=== PATIENT | male | born 1990 | race American Indian/Alaskan Native ===

== ENCOUNTER 2016-10-27 21:24 | Observation (INO) | payer OTHER ==
[2016-10-27 21:25] VITALS: BMI 43.0
--- NOTE | 2016-10-27 21:46 | C.PDOC ---
History Of Present Illness <Maria Luz Alford - Last Filed: 10/28/16 06:54> <Randolhp Mayo - Last Filed: 10/28/16 10:03> The patient, a 26y/o male, presents to the ED with complaints of suicidal ideation. Patient states he was discharged from [facility] ER for suicidal ideation. Patient has had multiple prior ER visits for the same. Patient has history of schizophrenia, alcohol intoxication, and agitation. CO SUICIDAL IDEATION. DC FROM [facility] ER FOR SUICIDAL IDEATION. MULTIPLE PRIOR ER VISITS FOR SAME, HO SCHIZOPHRENIA, ETOH INTOX AND AGITATION. (Maria Luz Alford) History Per: Patient History/Exam Limitations: intoxication Onset/Duration Of Symptoms: Hrs Current Symptoms Are (Timing): Still Present Suicide/Self Injury Attempted (Context): None Modifying Factor(s): Alcohol Associated Symptoms: Suicidal Thoughts Additional History Per: Patient <Maria Luz Alford - Last Filed: 10/28/16 06:54> <Randolph Mayo - Last Filed: 10/28/16 10:03> Time Seen by Provider: 10/27/16 21:44 Chief Complaint (Nursing): Psychiatric Evaluation Past Medical History Reviewed: Historical Data, Nursing Documentation, Vital Signs - Medical History PMH: Anxiety, Asthma, Bipolar Disorder, Depression, Fractures, HTN, Hypercholesterolemia, Migraine, Schizophrenia, Sleep Apnea Denies: Diabetes, Hepatitis, HIV, Chronic Kidney Disease, Seizures, Sexually Transmitted Disease Surgical History: No Surg Hx Family History: States: Unknown Family Hx - Social History Hx Tobacco Use: Yes Hx Alcohol Use: No Hx Substance Use: No - Immunization History Hx Tetanus Toxoid Vaccination: No Hx Influenza Vaccination: No Hx Pneumococcal Vaccination: No <Maria Luz Alford - Last Filed: 10/28/16 06:54> Vital Signs: Last Vital Signs Temp 97.2 F L 10/28/16 07:39 Pulse 67 10/28/16 07:39 Resp 18 10/28/16 07:39 BP 110/60 10/28/16 07:39 Pulse Ox 98 10/28/16 07:39 - [facility] Procedures GROUP PSYCHOTHERAPY (05/07/16) INDIVIDUAL PSYCHOTHERAPY, SUPPORTIVE (05/07/16) MEDICATION MANAGEMENT (05/07/16) Review Of Systems Constitutional: Positive for: Other (+ETOH intoxication ) <Maria Luz Alford - Last Filed: 10/28/16 06:54> Physical Exam - Physical Exam Appears: Agitated, Other (+ETOH intoxication ) Skin: Normal Color, Warm, Dry Head: Atraumatic, Normacephalic Eye(s): bilateral: Normal Inspection Oral Mucosa: Moist Neck: Supple Chest: Symmetrical, No Deformity Cardiovascular: Rhythm Regular Respiratory: Normal Breath Sounds Extremity: Normal ROM, Capillary Refill (less than 2 seconds ) Neurological/Psych: Other (active suicidal ideation, no hallucinations. calm, cooperative ) Gait: Unsteady <MariaL uz Alford - Last Filed: 10/28/16 06:54> ED Course And Treatment - Laboratory Results Result Diagrams: 10/27/16 22:34 10/27/16 22:34 O2 Sat by Pulse Oximetry: 96 (on RA) Pulse Ox Interpretation: Normal <Maria Luz Alford - Last Filed: 10/28/16 06:54> - Laboratory Results Result Diagrams: 10/27/16 22:34 10/27/16 22:34 <Randolph Mayo - Last Filed: 10/28/16 10:03> Medical Decision Making <Maria Luz Alford - Last Filed: 10/28/16 06:54> <Randolph Mayo - Last Filed: 10/28/16 10:03> Medical Decision Making: pt received as signout. will be transfered to dr octavia harman cxr no acute disease. medically cleared dx bipolar (Randolph Mayo) ED OBSERVATION Date of observation admission: 10/27/16 Time of observation admission: 21:45 <Maria Luz Alford - Last Filed: 10/28/16 06:54> <Randolph Mayo - Last Filed: 10/28/16 10:03> - Observation admission statement Patient is being placed in observation because:: SUICIDAL IDEATION (Maria Luz Alford) - Goals of Observation Goals of observation are:: MED CLEAR; CRISIS EVAL (Maria Luz Alford) - Progress Note Progress Note: 10/27/16 23:43 MED CLEAR FOR PSYCH EVAL, CRISIS NOTIFIED 10/28/16 05:49 PENDING CRISIS EVAL 10/28/16 06:55 S/O DR MAYO FU CRISIS, DISPO (Maria Luz Alford) Disposition <Maria Luz Alford - Last Filed: 10/28/16 06:54> - Disposition Disposition Time: 10:03 <Randolph Mayo - Last Filed: 10/28/16 10:03> - Disposition Disposition: Trans to Other Acute Care Hosp Condition: STABLE - Clinical Impression Clinical Impression: Bipolar I disorder - Scribe Statement The provider has reviewed the documentation as recorded by the Scribe (Marilee Echeverria) <Maria Luz Alford - Last Filed: 10/28/16 06:54> <Randolph Mayo - Last Filed: 10/28/16 10:03> - Scribe Statement Provider Attestation: All medical record entries made by the Scribe were at my direction and personally dictated by me. I have reviewed the chart and agree that the record accurately reflects my personal performance of the history, physical exam, medical decision making, and the department course for this patient. I have also personally directed, reviewed, and agree with the discharge instructions and disposition. (Maria Luz Alford)
[2016-10-27 22:36] LABS: BASO # 0.1 K/uL (0.0-0.2); BASO % 1.4 % (0.0-2.0); EOS # 0.2 K/uL (0.0-0.7); EOS % 3.6 % (0.0-4.0); HEMATOCRIT 41.4 % (35.0-51.0); LYMPH # 2.7 K/uL (1.0-4.3); LYMPH % 44.2 % (20.0-40.0); MEAN CELL VOLUME 80.8 fL (80.0-94.0); MEAN CORPUSCULAR HEMOGLOBIN 26.1 pg (27.0-31.0); MEAN CORPUSCULAR HGB CONC 32.3 g/dL (33.0-37.0); MEAN PLATELET VOLUME 10.3 fL (7.2-11.7); MONO # 0.5 K/uL (0.0-0.8); MONO % 7.7 % (0.0-10.0); RED CELL DISTRIBUTION WIDTH 14.8 % (11.5-14.5)
[2016-10-27 22:44] LABS: CHLORIDE 103 mmol/L (98-107); SODIUM 140 mmol/L (132-148)
[2016-10-27 22:45] LABS: POTASSIUM 3.5 mmol/L (3.6-5.2)
[2016-10-27 22:47] LABS: ALB/GLOB RATIO 1.1 (1.0-2.1); ALKALINE PHOSPHATASE 54 U/L (38-126); ALT/SGPT 37 U/L (21-72); AST/SGOT 29 U/L (17-59); BILIRUBIN,TOTAL 1.1 mg/dL (0.2-1.3); BLOOD UREA NITROGEN 10 mg/dL (9-20); CARBON DIOXIDE 25 mmol/L (22-30); GFR AFRICAN-AMERICAN > 60; GLUCOSE,RANDOM 80 mg/dL (75-110); TOTAL PROTEIN 7.4 g/dL (6.3-8.3)
[2016-10-27 22:48] LABS: ALCOHOL SERUM < 10 mg/dl (0-10); CALCIUM 8.9 mg/dl (8.6-10.4)
[2016-10-27 23:23] LABS: GRANULAR CAST 191 /lpf (0-1); RBC URINE 1 /hpf (0-3); URINE BACTERIA RARE (<OCC); URINE BILIRUBIN 1+ (NEGATIVE); URINE BLOOD NEGATIVE (NEGATIVE); URINE COLOR Amber (YELLOW); URINE GLUCOSE (UA) NORMAL (Normal); URINE KETONE TRACE mg/dL (NEGATIVE); URINE LEUKOCYTE ESTERASE NEG Leu/uL (Negative); URINE PROTEIN 1+ mg/dL (NEGATIVE); WBC URINE 2 /hpf (0-5)
[2016-10-28 13:19] VITALS: BP 111/73; PULSE 68; RESP 20; TEMP 98.4; O2SAT 100
--- NOTE | 2016-10-28 15:09 | RAD ---
HISTORY: psych COMPARISON: 10/11/2016 FINDINGS: LUNGS: No active pulmonary disease. PLEURA: No significant pleural effusion identified, no pneumothorax apparent. CARDIOVASCULAR: Normal. OSSEOUS STRUCTURES: No significant abnormalities. VISUALIZED UPPER ABDOMEN: Normal. OTHER FINDINGS: None. IMPRESSION: No active disease.
== END 2016-10-28 16:06 | disposition home or self-care (01) ==
LOC: C.ER 21:24 → C.9OBSV 21:45
PROVIDERS: ADMIT Emergency Medicine; ATTEND Emergency Medicine
DX: F20.9 Schizophrenia, unspecified (principal); F31.9 Bipolar disorder, unspecified; I10 Essential (primary) hypertension; E78.00 Pure hypercholesterolemia, unspecified; J45.909 Unspecified asthma, uncomplicated; R45.851 Suicidal ideations; Z87.891 Personal history of nicotine dependence; G47.30 Sleep apnea, unspecified
CPT/HCPCS: 36415; 71010; 80053; 80320; 80324; 80345; 80346; 80349; 80353; 80358; 80361; 81001; 83992; 85025; 99285; G0378 ×2

== ENCOUNTER 2016-11-09 19:03 | Emergency (ER) | payer MEDICAID, OTHER ==
[2016-11-09 19:03] VITALS: BMI 43.0
--- NOTE | 2016-11-09 20:19 | C.PDOC ---
History Of Present Illness 26 year old male presents to the ED with complaints of suicidal thoughts and delusions. Patient states he has no plan and denies homicidal ideation or any physical complaints at this time. Time Seen by Provider: 11/09/16 20:19 Chief Complaint (Nursing): Psychiatric Evaluation History Per: Patient History/Exam Limitations: no limitations Onset/Duration Of Symptoms: Days Current Symptoms Are (Timing): Still Present Severity: Mild Associated Symptoms: Suicidal Thoughts. denies: Suicidal Plan Past Medical History Reviewed: Historical Data, Nursing Documentation, Vital Signs Vital Signs: Last Vital Signs Temp 98.8 F 11/09/16 19:19 Pulse 90 11/09/16 19:19 Resp 20 11/09/16 19:19 BP 121/69 11/09/16 19:19 Pulse Ox 96 11/09/16 21:45 - Medical History PMH: Anxiety, Asthma, Bipolar Disorder, Depression, Fractures (hx. right wrist) , HTN, Hypercholesterolemia, Migraine, Schizophrenia, Sleep Apnea - [facility] Procedures EXTRACTION OF LEFT FOOT SKIN, EXTERNAL APPROACH (10/28/16) EXTRACTION OF RIGHT FOOT SKIN, EXTERNAL APPROACH (10/28/16) GROUP PSYCHOTHERAPY (10/28/16) INDIVIDUAL PSYCHOTHERAPY, BEHAVIORAL (10/28/16) INDIVIDUAL PSYCHOTHERAPY, SUPPORTIVE (05/07/16) MEDICATION MANAGEMENT (05/07/16) Family History: States: Unknown Family Hx - Social History Hx Tobacco Use: Yes Hx Alcohol Use: Yes (as per pt. etoh level, neg) Hx Substance Use: No (PT DENIES) - Immunization History Hx Tetanus Toxoid Vaccination: No Hx Influenza Vaccination: No Hx Pneumococcal Vaccination: No Review Of Systems Constitutional: Negative for: Fever, Chills Cardiovascular: Negative for: Chest Pain, Palpitations Respiratory: Negative for: Cough, Shortness of Breath Gastrointestinal: Negative for: Nausea, Vomiting, Abdominal Pain Musculoskeletal: Negative for: Neck Pain, Back Pain Neurological: Negative for: Weakness, Numbness Psych: Positive for: Suicidal ideation Physical Exam - Physical Exam Appears: Non-toxic, No Acute Distress Skin: No Warm, No Dry Head: Atraumatic, Normacephalic Eye(s): bilateral: Normal Inspection Oral Mucosa: Moist Neck: Supple Chest: Symmetrical, No Deformity Cardiovascular: Rhythm Regular Respiratory: No Accessory Muscle Use, No Rales, No Rhonchi, No Wheezing Extremity: Normal ROM Neurological/Psych: Oriented x3, Normal Speech, Normal Cognition ED Course And Treatment - Laboratory Results Result Diagrams: 11/09/16 20:55 11/09/16 20:55 O2 Sat by Pulse Oximetry: 96 (Room air) Pulse Ox Interpretation: Normal Progress Note: Blood work and Urinalysis ordered and reviewed. Case discussed with the crisis overnight caregiver who agreed to evaluate the patient. Patient cleared for discharge by dr Carl Reevaluation Time: 21:44 Reassessment Condition: Improved Disposition Counseled Patient/Family Regarding: Studies Performed, Diagnosis, Need For Followup - Disposition Referrals: Jonathan Howard Jr., MD [Medical Doctor] - Disposition: HOME/ ROUTINE Disposition Time: 20:19 Condition: FAIR Instructions: Depression (DC), Schizoaffective Disorder (ED) - Clinical Impression Clinical Impression: Schizoaffective disorder - Scribe Statement The provider has reviewed the documentation as recorded by the Scribe Kymberly Odonnell. Provider Attestation: All medical record entries made by the Scribe were at my direction and personally dictated by me. I have reviewed the chart and agree that the record accurately reflects my personal performance of the history, physical exam, medical decision making, and the department course for this patient. I have also personally directed, reviewed, and agree with the discharge instructions and disposition.
[2016-11-09 20:40] LABS: URINE BILIRUBIN NEGATIVE (NEGATIVE); URINE BLOOD NEGATIVE (NEGATIVE); URINE COLOR Straw (YELLOW); URINE GLUCOSE (UA) NORMAL (Normal); URINE KETONE NEGATIVE (NEGATIVE); URINE LEUKOCYTE ESTERASE NEG Leu/uL (Negative); URINE PROTEIN NEGATIVE (NEGATIVE); URINE UROBILINOGEN NORMAL mg/dL (0.2-1.0)
[2016-11-09 21:00] LABS: BASO # 0.1 K/uL (0.0-0.2); BASO % 0.7 % (0.0-2.0); EOS # 0.2 K/uL (0.0-0.7); EOS % 2.2 % (0.0-4.0); HEMATOCRIT 38.4 % (35.0-51.0); LYMPH # 2.8 K/uL (1.0-4.3); LYMPH % 36.1 % (20.0-40.0); MEAN CELL VOLUME 81.1 fL (80.0-94.0); MEAN CORPUSCULAR HEMOGLOBIN 26.5 pg (27.0-31.0); MEAN CORPUSCULAR HGB CONC 32.6 g/dL (33.0-37.0); MEAN PLATELET VOLUME 10.6 fL (7.2-11.7); MONO # 0.7 K/uL (0.0-0.8); MONO % 8.7 % (0.0-10.0); NRBC % 0.1 % (0.0-2.0); RED CELL DISTRIBUTION WIDTH 15.6 % (11.5-14.5); WHITE BLOOD COUNT 7.6 K/uL (4.8-10.8)
[2016-11-09 21:10] LABS: CHLORIDE 101 mmol/L (98-107); POTASSIUM 3.9 mmol/L (3.6-5.2); SODIUM 140 mmol/L (132-148)
[2016-11-09 21:12] LABS: GFR AFRICAN-AMERICAN > 60
[2016-11-09 21:13] LABS: ALB/GLOB RATIO 1.5 (1.0-2.1); ALKALINE PHOSPHATASE 49 U/L (38-126); ALT/SGPT 22 U/L (21-72); AST/SGOT 17 U/L (17-59); BILIRUBIN,TOTAL 0.2 mg/dL (0.2-1.3); BLOOD UREA NITROGEN 8 mg/dL (9-20); CALCIUM 8.2 mg/dl (8.6-10.4); CARBON DIOXIDE 22 mmol/L (22-30); GLUCOSE,RANDOM 94 mg/dL (75-110); TOTAL PROTEIN 6.3 g/dL (6.3-8.3)
[2016-11-09 21:14] LABS: ALCOHOL SERUM 81 mg/dl (0-10)
[2016-11-09 21:53] VITALS: BP 120/69; PULSE 87; RESP 18; TEMP 98.6; O2SAT 98
== END 2016-11-09 21:45 | disposition home or self-care (01) ==
LOC: C.ER 19:03
DX: F25.1 Schizoaffective disorder, depressive type (principal)

== ENCOUNTER 2017-03-18 22:00 | Observation (INO) | payer MEDICAID, OTHER ==
[2017-03-19 01:42] LABS: BASO # 0.1 K/uL (0.0-0.2); BASO % 0.9 % (0.0-2.0); EOS # 0.2 K/uL (0.0-0.7); HEMATOCRIT 42.3 % (35.0-51.0); LYMPH # 3.1 K/uL (1.0-4.3); LYMPH % 43.6 % (20.0-40.0); MEAN CELL VOLUME 81.8 fL (80.0-94.0); MEAN CORPUSCULAR HEMOGLOBIN 26.9 pg (27.0-31.0); MEAN CORPUSCULAR HGB CONC 32.9 g/dL (33.0-37.0); MEAN PLATELET VOLUME 9.7 fL (7.2-11.7); MONO # 0.5 K/uL (0.0-0.8); MONO % 7.3 % (0.0-10.0); NRBC % 0.1 % (0.0-2.0); RED CELL DISTRIBUTION WIDTH 14.1 % (11.5-14.5); WHITE BLOOD COUNT 7.1 K/uL (4.8-10.8)
[2017-03-19 01:49] LABS: RBC URINE < 1 /hpf (0-3); URINE BILIRUBIN NEGATIVE (NEGATIVE); URINE BLOOD NEGATIVE (NEGATIVE); URINE COLOR Amber (YELLOW); URINE GLUCOSE (UA) NORMAL (Normal); URINE KETONE TRACE mg/dL (NEGATIVE); URINE LEUKOCYTE ESTERASE NEG Leu/uL (Negative); URINE PROTEIN 1+ mg/dL (NEGATIVE); WBC URINE 1 /hpf (0-5)
[2017-03-19 01:57] LABS: CHLORIDE 105 mmol/L (98-107)
[2017-03-19 01:58] LABS: POTASSIUM 3.5 mmol/L (3.6-5.2); SODIUM 141 mmol/L (132-148)
[2017-03-19 02:00] LABS: ALB/GLOB RATIO 1.3 (1.0-2.1); ALKALINE PHOSPHATASE 57 U/L (38-126); AST/SGOT 54 U/L (17-59); BILIRUBIN,TOTAL 0.9 mg/dL (0.2-1.3); BLOOD UREA NITROGEN 10 mg/dL (9-20); CARBON DIOXIDE 22 mmol/L (22-30); GFR AFRICAN-AMERICAN > 60
[2017-03-19 02:01] LABS: ALCOHOL SERUM < 10 mg/dl (0-10); ALT/SGPT 49 U/L (21-72); CALCIUM 9.3 mg/dl (8.6-10.4); GLUCOSE,RANDOM 82 mg/dL (75-110)
--- NOTE | 2017-03-19 02:25 | C.PDOC ---
History Of Present Illness <Rick Wylie - Last Filed: 03/19/17 02:29> <Antolin Greenwood - Last Filed: 03/19/17 08:27> 26 year old male who presents to the ER with a complaint of swelling to the hands. Patient is well known to the ER and has a Hx of becoming agitated. Patient is verbally abusing staff and is not allowing the nurses to do vital signs. Denies other complaints at this time. (WylieRick R) History Per: Patient History/Exam Limitations: no limitations Onset/Duration Of Symptoms: Hrs Current Symptoms Are (Timing): Still Present Recent travel outside of the [place]: No <Rick Wylie - Last Filed: 03/19/17 02:29> <Antolin Greenwood - Last Filed: 03/19/17 08:27> Chief Complaint (Nursing): Psychiatric Evaluation Past Medical History Reviewed: Historical Data, Nursing Documentation, Vital Signs - Medical History PMH: Anxiety, Asthma, Bipolar Disorder, Depression, Diabetes (per pt), Fractures (hx. right wrist), HTN, Hypercholesterolemia, Migraine, Schizophrenia , Sleep Apnea Surgical History: No Surg Hx Family History: States: Unknown Family Hx - Social History Hx Tobacco Use: Yes Hx Alcohol Use: No Hx Substance Use: Yes (hx of drug overdose) - Immunization History Hx Tetanus Toxoid Vaccination: No Hx Influenza Vaccination: No Hx Pneumococcal Vaccination: No <Rick Wylie - Last Filed: 03/19/17 02:29> <ImmAntolin - Last Filed: 03/19/17 08:27> Vital Signs: Last Vital Signs Temp 98.3 F 03/19/17 03:34 Pulse 61 03/19/17 06:23 Resp 16 03/19/17 06:23 BP 119/83 03/19/17 06:23 Pulse Ox 99 03/19/17 06:23 - [facility] Procedures EXTRACTION OF LEFT FOOT SKIN, EXTERNAL APPROACH (11/11/16) EXTRACTION OF RIGHT FOOT SKIN, EXTERNAL APPROACH (11/11/16) GROUP PSYCHOTHERAPY (11/11/16) INDIVIDUAL PSYCHOTHERAPY, BEHAVIORAL (11/11/16) INDIVIDUAL PSYCHOTHERAPY, SUPPORTIVE (05/07/16) MEDICATION MANAGEMENT (05/07/16) Review Of Systems Constitutional: Negative for: Fever, Chills Gastrointestinal: Negative for: Nausea, Vomiting, Diarrhea Skin: Positive for: Other (Swelling) <Rick Wylie - Last Filed: 03/19/17 02:29> Physical Exam - Physical Exam Appears: Non-toxic, No Acute Distress Skin: Normal Color, Warm, Dry Head: Atraumatic, Normacephalic Oral Mucosa: Moist Chest: Symmetrical, No Tenderness Cardiovascular: Rhythm Regular, No Murmur Respiratory: Normal Breath Sounds, No Rales, No Rhonchi, No Wheezing Gastrointestinal/Abdominal: Soft, No Tenderness Neurological/Psych: Oriented x3, Normal Speech, Normal Cognition <Rick Wylie R - Last Filed: 03/19/17 02:29> ED Course And Treatment - Laboratory Results Result Diagrams: 03/19/17 01:32 03/19/17 01:32 O2 Sat by Pulse Oximetry: 97 (Room air) Pulse Ox Interpretation: Normal Progress Note: UDS ordered. Ativan and haldol administered. Catheter placed. Patient place on 4 points for his own safety and safety of staff. <Rick Wylie - Last Filed: 03/19/17 02:29> - Laboratory Results Result Diagrams: 03/19/17 01:32 03/19/17 01:32 <Antolin Greenwood - Last Filed: 03/19/17 08:27> Medical Decision Making <Rick Wylie - Last Filed: 03/19/17 02:29> <Antolin Greenwood - Last Filed: 03/19/17 08:27> Medical Decision Making: Signed out to me by Dr. Wylie at change of shift pending evaluation by Psych. Patient evaluated at bedside by Dr. Zelaya who recommends discharge at this time and referral to [facility]. (Antolin Greenwood) Disposition <Rick Wylie - Last Filed: 03/19/17 02:29> Discussed With : Scot Zelaya Doctor Will See Patient In The: ED - Disposition Disposition Time: 08:25 <Antolin Greenwood - Last Filed: 03/19/17 08:27> - Disposition Disposition: HOME/ ROUTINE Condition: STABLE - Clinical Impression Clinical Impression: Psychiatric symptoms - Scribe Statement The provider has reviewed the documentation as recorded by the Scribe <Rick Wylie - Last Filed: 03/19/17 02:29> <Antolin Greenwood - Last Filed: 03/19/17 08:27> - Scribe Statement Anthony Lehman All medical record entries made by the Scribe were at my direction and personally dictated by me. I have reviewed the chart and agree that the record accurately reflects my personal performance of the history, physical exam, medical decision making, and the department course for this patient. I have also personally directed, reviewed, and agree with the discharge instructions and disposition. (Rick Wylie)
[2017-03-19 03:34] VITALS: TEMP 98.3
[2017-03-19 06:24] VITALS: BP 119/83; PULSE 61; RESP 16; O2SAT 99
--- NOTE | 2017-03-19 07:55 | RAD ---
HISTORY: for [facility] [place] COMPARISON: 10/28/2016 FINDINGS: LUNGS: No active pulmonary disease. Shallow lung volumes noted -some crowding of the infrahilar bronchovascular markings noted PLEURA: Sign CARDIOVASCULAR: Normal. OSSEOUS STRUCTURES: No significant abnormalities. VISUALIZED UPPER ABDOMEN: Normal. OTHER FINDINGS: None. IMPRESSION: No active disease. No suspect interval pathology
--- NOTE | 2017-03-19 08:53 | PCM.PSYCH ---
Initial Psychiatric Evaluation - Initial Psychiatric Evaluation Type of Admission: Voluntary Legal Status: Capacity Chief Complaint (in patient's own words): "I was bloated, that's why I came" History of Present Illness and Precipitating Events: The pt is seen, chart reviewed and case discussed with several staff. He is also well-known to us from previous visits and admissions, same in [facility]. 26 yo AAM, single, homeless and unemployed He says he came in for medical reasons but then asked for psych admission. He speaks about vague SI, but has no intention/plan. He reports some depressive sxs, irritability. However, he is seen at his baseline like before. Using MJ and amphetamines Past psych hx: several admissions Medical: as per chart, cleared medically Past Psychiatric History - Past Psychiatric History Previous Treatment History: Inpatient Pertinent Medical Hx (Current Medical&Sleep Prob, Allergies): Allergies Allergy/AdvReac Type Severity Reaction Status Date / Time pollen extracts Allergy REDNESS Verified 12/26/16 11:47 Benztropine [Cogentin] 1 mg PO BID #28 tab 11/22/16 Divalproex [Depakote DR(*BID*)] 1,000 mg PO HS #28 tcp 11/22/16 Divalproex [Depakote] 750 mg PO DAILY #42 tcp 11/22/16 Haloperidol [Haldol] 10 mg PO BID #28 tab 11/22/16 Sertraline [Zoloft] 50 mg PO DAILY #14 tab 11/22/16 traZODone [Desyrel] 50 mg PO HS #14 tab 11/22/16 Review of Systems - Psychiatric Psychiatric: Abnormal Sleep Pattern, Difficulty Concentrating, Hallucinations. absent: Homicidal Ideation, Suicidal Ideation Mental Status Examination - Personal Presentation Personal Presentation: Looks older than stated age - Affect Affect: Constricted - Motor Activity Motor Activity: Calm (now) - Reliability in Providing Information Reliability in Providing Information: Fair - Speech Speech: Organized - Mood Mood: Anxious - Formal Thought Process Formal Thought Process: Hallucinations - Cognitive Functions Orientation: Person, Place, Situation, Time Sensorium: Drowsy Attention/Concentration: Easily distracted Estimate of Intelligence: Below average Judgement: Imparied, as evidence by: Poor judgement Memory: Recent impaired, as evidence by: Inability to recall events of the day, Remote impaired as evidenced by: Inability to recall sig life events - Risk Risk: Diminished functioning - Limitations Limitations: Living alone DSM 5 DX - DSM 5 DSM 5 Diagnosis: Schizoaffective d/o - bipolar type r/o Antisocial personality d/o - Recommended/Plan of Treatment Treatment Recommendations and Plan of Treatment: Pt can follow with [facility] as arranged previously [facility] if needed Cleared for d/c 31 min
--- NOTE | 2017-03-19 18:27 | CARD ---
APPROVED REPORT EKG Measurement Heart [id number] <Conclusion> Sinus bradycardia with sinus arrhythmia Otherwise normal ECG
== END 2017-03-19 09:47 | disposition home or self-care (01) ==
LOC: C.ER 22:00 → C.9OBSV 03-19 06:57
PROVIDERS: ADMIT Emergency Medicine; ATTEND Emergency Medicine
DX: F25.0 Schizoaffective disorder, bipolar type (principal); F15.10 Other stimulant abuse, uncomplicated; F12.10 Cannabis abuse, uncomplicated; F17.210 Nicotine dependence, cigarettes, uncomplicated; J45.909 Unspecified asthma, uncomplicated; I10 Essential (primary) hypertension; G47.30 Sleep apnea, unspecified; E78.00 Pure hypercholesterolemia, unspecified; E11.9 Type 2 diabetes mellitus without complications
CPT/HCPCS: 71010; 80053; 80320; 80324; 80345; 80346; 80349; 80353; 80358; 80361; 81001; 83992; 85025; 93005; 96372; 99285; G0378; J1630; J2060

== ENCOUNTER 2017-03-26 16:52 | Inpatient (IN) | payer MEDICAID, OTHER ==
[2017-03-26 16:58] VITALS: BMI 35.9
[2017-03-26 17:24] LABS: BASO # 0.1 K/uL (0.0-0.2); BASO % 1.3 % (0.0-2.0); EOS # 0.2 K/uL (0.0-0.7); EOS % 3.1 % (0.0-4.0); HEMATOCRIT 40.8 % (35.0-51.0); LYMPH # 2.5 K/uL (1.0-4.3); MEAN CELL VOLUME 81.1 fL (80.0-94.0); MEAN CORPUSCULAR HGB CONC 33.3 g/dL (33.0-37.0); MONO # 0.4 K/uL (0.0-0.8); MONO % 6.8 % (0.0-10.0); NRBC % 0.1 % (0.0-2.0); RED CELL DISTRIBUTION WIDTH 13.8 % (11.5-14.5); WHITE BLOOD COUNT 6.3 K/uL (4.8-10.8)
--- NOTE | 2017-03-26 17:35 | C.PDOC ---
History Of Present Illness 26 yr old male presents to the ER accompanied by PD, stating he has suicidal ideation, homicidal ideation, visual and auditory hallucinations. Patient states the auditory hallucination saw various words. Patient states he does not have a plan. Patient states the last time he took his psych medication was last week. Patient reports on the request of his psychiatrists he stopped taking his medications, secondary to the heat. Patient denies chest pain, SOB, weakness or numbness. Time Seen by Provider: 03/26/17 17:02 Chief Complaint (Nursing): Psychiatric Evaluation History Per: Patient History/Exam Limitations: no limitations Onset/Duration Of Symptoms: Days Suicide/Self Injury Attempted (Context): None Past Medical History Reviewed: Historical Data, Nursing Documentation, Vital Signs Vital Signs: Last Vital Signs Temp 98.5 F 03/26/17 16:55 Pulse 75 03/26/17 16:55 Resp 18 03/26/17 16:55 BP 176/75 H 03/26/17 16:55 Pulse Ox 97 03/26/17 17:38 - Medical History PMH: Anxiety, Asthma, Bipolar Disorder, Depression, Diabetes (per pt), Fractures (hx. right wrist), HTN, Hypercholesterolemia, Migraine, Schizophrenia , Sleep Apnea - [facility] Procedures EXTRACTION OF LEFT FOOT SKIN, EXTERNAL APPROACH (11/11/16) EXTRACTION OF RIGHT FOOT SKIN, EXTERNAL APPROACH (11/11/16) GROUP PSYCHOTHERAPY (11/11/16) INDIVIDUAL PSYCHOTHERAPY, BEHAVIORAL (11/11/16) INDIVIDUAL PSYCHOTHERAPY, SUPPORTIVE (05/07/16) MEDICATION MANAGEMENT (05/07/16) Family History: States: No Known Family Hx - Social History Hx Tobacco Use: Yes Hx Alcohol Use: Yes Hx Substance Use: Yes (hx of drug overdose) - Immunization History Hx Tetanus Toxoid Vaccination: No Hx Influenza Vaccination: No Hx Pneumococcal Vaccination: No Review Of Systems Except As Marked, All Systems Reviewed And Found Negative. Cardiovascular: Negative for: Chest Pain Respiratory: Negative for: Shortness of Breath Neurological: Negative for: Weakness, Numbness Psych: Positive for: Suicidal ideation, Other ((+) Homicidal ideation . Auditory and visual hallucinations. ) Physical Exam - Physical Exam Appears: Non-toxic, Other ((+) Anxous.) Skin: Warm, Dry, No Rash Head: Atraumatic, Normacephalic Eye(s): bilateral: Normal Inspection, PERRL, EOMI Oral Mucosa: Moist Chest: Symmetrical, No Tenderness Cardiovascular: Rhythm Regular, No Murmur Respiratory: Normal Breath Sounds, No Rales, No Rhonchi, No Stridor, No Wheezing Extremity: Normal ROM, No Swelling Neurological/Psych: Oriented x3, Normal Speech, Normal Motor, Normal Sensation ED Course And Treatment - Laboratory Results Result Diagrams: 03/26/17 17:19 03/26/17 17:19 O2 Sat by Pulse Oximetry: 97 (RA ) Pulse Ox Interpretation: Normal Medical Decision Making Medical Decision Making: PLAN: * Alcohol Serum * Drug Screen * CBC * CMP * Urinalysis Disposition - Disposition Disposition Time: 18:50 Condition: STABLE Forms: [facility] ([place]) - Clinical Impression Clinical Impression: Schizoaffective disorder - Scribe Statement The provider has reviewed the documentation as recorded by the Ricky Méndez Provider Attestation: All medical record entries made by the Brianibbeulah were at my direction and personally dictated by me. I have reviewed the chart and agree that the record accurately reflects my personal performance of the history, physical exam, medical decision making, and the department course for this patient. I have also personally directed, reviewed, and agree with the discharge instructions and disposition.
[2017-03-26 17:36] LABS: CHLORIDE 105 mmol/L (98-107); POTASSIUM 3.3 mmol/L (3.6-5.2); SODIUM 144 mmol/L (132-148)
[2017-03-26 17:37] LABS: RBC URINE < 1 /hpf (0-3); TRANSITIONAL EPITHIAL < 1 /hpf (0-3); URINE BACTERIA RARE (<OCC); URINE BILIRUBIN NEGATIVE (NEGATIVE); URINE BLOOD NEGATIVE (NEGATIVE); URINE COLOR YELLOW (YELLOW); URINE GLUCOSE (UA) NORMAL (Normal); URINE KETONE TRACE mg/dL (NEGATIVE); URINE LEUKOCYTE ESTERASE NEG Leu/uL (Negative); URINE PROTEIN 1+ mg/dL (NEGATIVE); WBC URINE 1 /hpf (0-5)
[2017-03-26 17:38] LABS: BILIRUBIN,TOTAL 0.8 mg/dL (0.2-1.3); CARBON DIOXIDE 24 mmol/L (22-30); GFR AFRICAN-AMERICAN > 60
[2017-03-26 17:39] LABS: ALB/GLOB RATIO 1.2 (1.0-2.1); ALKALINE PHOSPHATASE 57 U/L (38-126); ALT/SGPT 51 U/L (21-72); AST/SGOT 45 U/L (17-59); BLOOD UREA NITROGEN 10 mg/dL (9-20); CALCIUM 9.2 mg/dl (8.6-10.4); GLUCOSE,RANDOM 81 mg/dL (75-110); TOTAL PROTEIN 7.3 g/dL (6.3-8.3)
[2017-03-26 17:40] LABS: ALCOHOL SERUM < 10 mg/dl (0-10)
--- NOTE | 2017-03-26 20:44 | PCM.BM ---
<JannetColleen forrester - Last Filed: 03/26/17 20:42> Treatment Plan Problems - Problems identified on initial assessmt depression Date Initiated: 03/26/17 Time Initiated: 20:43 Assessment reference: NA Status: Active Comment: positive for THC Treatment assets and liabiliti Patient Assests: ADL independent, negotiates basic needs Patient Liabilities: live alone, poor support system, substance abuse, medical problems - Milieu Protocol Maintain good personal hygiene: daily Encourage regular showers, daily Remind patient to perform daily oral care Conduct patient checks and document Observation sheet: Q15 minutes Maintain personal safety: every shift Educate patient to report safety concerns to staff, every shift Monitor environment for contraband/sharps Medication safety: Monitor for expected outcome, potential side effects: every shift, Assess barriers to learning: every shift, Assess readiness for medication education: every shift <Bina Hensley - Last Filed: 03/27/17 11:14> Family Contact Family involvement: Famliy/SO not involved - Outside Agency Agency 1 Agency contact name: [facility] Agency contact number: - Goals for Treatment Patient goals for treatment: "I want to go back to [facility]." Discharge/Continuing Care - Education Needs Education Needs: Patient Medication, Patient Coping Skills, Patient Community resources - Discharge Discharge Criteria: Tolerates medication w/o severe side effects, Free of Suicidal thoughts Discharge to:: Correction - Treatment Team Participation Discussed with Family/SO: No Was Patient/Family/SO present at Treatment Team Meeting: Yes <SiddharthaPercy - Last Filed: 03/27/17 11:16> - Diagnosis (1) Schizoaffective disorder Status: Acute Interventions: 03/27/17 11:16 * Assess/adjust medications daily and /or as needed * See patient on an individual basis 7x/week to assess status of hallucinations * Discuss risks, benefits, side effects and alternatives of medications * (2) Alcohol abuse Status: Acute Interventions: 03/27/17 11:16 * Assess 7x/week regarding severity of withdrawal * Educate regarding risks, benefits, side effects and alternatives of medications * Use Motivational Interviewing for abstinence * Use CBT for relapse prevention * Medication management for withdrawal symptoms * Encourage medication assisted treatment *
[2017-03-27] MEDS: Albuterol HFA 90 mcg/actuation (8 g) INH PRN ×2 (10:18→18:22)
--- NOTE | 2017-03-27 11:12 | PCM.PSYCH ---
Initial Psychiatric Evaluation - Initial Psychiatric Evaluation Type of Admission: Voluntary Legal Status: Capacity Chief Complaint (in patient's own words): "I feel antsy and irritated." History of Present Illness and Precipitating Events: The pt is seen, chart reviewed, case discussed with staff. A 26 yo -[place] presents to the ED stating he has suicidal ideation, homicidal ideation, and visual and auditory hallucinations. Today, he appears agitated, guarded, and internally preoccupied. He is observed to pace back and forth, appearing slightly paranoid. He appears older than stated age. The patient is uncooperative and a poor historian. The patient admits to feeling depressed and anxious. He admits to experiencing delusions; he hears voices and see's shapes. The patient will not specify further. The patient reports that he drinks alcohol, an unspecified number of shots and beers every day. He reports last drinking 2 days ago. The patient also admits to smoking marijuana. He has conjunctivitis in this right eye and his Urine Tox screen is positive for THC. The patient reports feeling suicidal. He reports previous suicide attempts, an unspecified number of attempts, all by overdosing on various drugs. The patient reports that his previous psych meds were not working. He reports that the last time taking psych medications was last week, on the request of his psychiatrists. 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 Past Psychiatric Hx: Schizoaffective; Bipolar Disorder; Depression; Anxiety; denies pcp, lsd, cocaine, heroin; admits to drinking alcohol and smoking marijuana and tabacoo. Family Hx: none Family Psychiatric Hx: none Past Medical Hx: Anxiety, Asthma, Bipolar Disorder, Depression, Diabetes (per pt ), Fractures (hx. right wrist), HTN, Hypercholesterolemia, Migraine, Schizophrenia, Sleep Apnea Current Medications: Active Medications Generic Name Dose Route Start Last Admin Trade Name Freq PRN Reason Stop Dose Admin Albuterol 1 puff 03/26/17 20:28 03/27/17 10:18 Ventolin Hfa 90 Mcg/Actuation (8 G) INH 1 puff RQ6 PRN Administration Shortness of Breath Benztropine Mesylate 2 mg 03/26/17 19:46 Cogentin PO Q6 PRN eps Diphenhydramine HCl 50 mg 03/26/17 19:46 Benadryl PO Q6 PRN anxiety Haloperidol 5 mg 03/26/17 19:46 Haldol PO Q6 PRN hallucinations Ibuprofen 600 mg 03/26/17 19:46 Motrin Tab PO Q6 PRN Pain, moderate (4-7) Lorazepam 1 mg 03/26/17 19:46 03/26/17 22:26 Ativan PO 1 mg Q6 PRN Administration Agitation Lorazepam 1 mg 03/26/17 19:53 Ativan IM Q6H PRN agitation, im if refuses PO Past Psychiatric History - Past Psychiatric History Previous Treatment History: Inpatient Pertinent Medical Hx (Current Medical&Sleep Prob, Allergies): Allergies Allergy/AdvReac Type Severity Reaction Status Date / Time pollen extracts Allergy REDNESS Verified 03/26/17 16:56 LORazepam [Ativan] 1 mg PO HS 03/26/17 risperiDONE [RisperDAL Tab] 1 mg PO BID 03/26/17 Review of Systems - Review of Systems All systems: reviewed and no additional remarkable complaints except - Psychiatric Psychiatric: Auditory Hallucinations, Change in Appetite, Depression, Paranoia, Suicidal Ideation, Visual Hallucinations Mental Status Examination - Personal Presentation Personal Presentation: Looks stated age - Affect Affect: Broad, Depressed - Motor Activity Motor Activity: Psychomotor Agitation - Reliability in Providing Information Reliability in Providing Information: Poor, due to alteration in thoughts, Poor , due to altered mood - Speech Speech: Disorganized - Mood Mood: Depressed, Anxious - Formal Thought Process Formal Thought Process: Hallucinations, Delusions, Paranoia, Loosening of associations, Flight of ideas - Hallucinations/Delusions Hallucinations: Visual, Auditory Delusions: Persecution - Obsessions/Compulsions Obsessions: No Compulsions: No - Cognitive Functions Orientation: Person, Place, Situation, Time Sensorium: Alert Attention/Concentration: Attentive Abstract Thinking: [place] Estimate of Intelligence: Below average Judgement: Imparied, as evidence by: Poor judgement, Imparied, as evidence by: Lack of insight into illness - Risk Risk: Suicidal, Homicidal, Withdrawal, Diminished functioning - Limitations Limitations: Living alone DSM 5 DX - DSM 5 DSM 5 Diagnosis: Schizoaffective disorder bipolar type Alcohol use disorder severe Alcohol withdrawal - Recommended/Plan of Treatment Treatment Recommendations and Plan of Treatment: Schizoaffective disorder bipolar type CBT Psychoeducation Supportive therapy, group therapy, individual therapy Risperdal 2 mg by mouth twice a day Depakote 500 mg PO BID Trazodone 50 mg by mouth daily at bedtime Alcohol use disorder severe CBT Psychoeducation Supportive therapy, individual therapy Use [place] for abstinence Alcohol withdrawal CBT Psychoeducation Supportive therapy, individual therapy Ativan prn - Smoking Cessation Smoking Cessation Initiated: No
[2017-03-27] MEDS: Divalproex 500 mg DR Tab PO SCH ×2 (17:36→17:37)
[2017-03-28] MEDS: Divalproex 500 mg DR Tab PO SCH ×3 (10:15→17:21)
[2017-03-28] MEDS: Albuterol HFA 90 mcg/actuation (8 g) INH PRN (10:19)
--- NOTE | 2017-03-28 13:46 | PCM.PYCHPN ---
Psychiatric Progress Note - Psychiatric Progress Note Patient seen today, length of contact: 15 min Patient Chief Complaint: "I m feeling anxious. Problems Identified/Issues Discussed: Patient seen and evaluated, chart reviewed and discussed with the nurse. Patient remained disorganized and internally preoccupied. Patient remained isolated, confined and withdrawn. He still reports of hearing voices. Patient still appears paranoid and delusional. He reports depressed mood and feelings of hopelessness and helplessness. He is taking medication and denies any side effects. He needs some time for socialization. Supportive therapy and psychoeducation were given. Medication Change: Yes (Start Neurontin) Medical Record Reviewed: Yes Mental Status Examination - Cognitive Function Orientation: Person, Place, Situation, Time Memory: Intact Attention: WNL Concentration: Poor Association: Loose Fund of Knowledge: WNL - Mood Mood: Depressed, Anxious - Affect Affect: Broad, Depressed - Speech Speech: Soft - Formal Thought Process Formal Thought Process: Hallucinations, Delusions, Paranoia, Loosening of associations, Flight of ideas - Suicidal Ideation Suicidal Ideation: No - Homicidal Ideation Homicidal Ideation: No Goal/Treatment Plan - Goal/Treatment Plan Need for Continued Stay: Discharge may exacerbated symptoms, Severe functional impairment Progress Toward Problem(s) and Goals/Treatment Plan: Schizoaffective disorder bipolar type CBT Psychoeducation Supportive therapy, group therapy, individual therapy Risperdal 2 mg by mouth twice a day Depakote 500 mg PO BID Trazodone 50 mg by mouth daily at bedtime Alcohol use disorder severe CBT Psychoeducation Supportive therapy, individual therapy Use [place] for abstinence Alcohol withdrawal CBT Psychoeducation Supportive therapy, individual therapy Ativan prn - Smoking Cessation Smoking Cessation Initiated: No
--- NOTE | 2017-03-29 10:02 | PCM.PYCHPN ---
Psychiatric Progress Note - Psychiatric Progress Note Patient seen today, length of contact: 15 min Patient Chief Complaint: "I feel antsy and irritated." Problems Identified/Issues Discussed: Patient seen and evaluated, chart reviewed and discussed with the nurse. Today he appears more organized but remained isolated, confined and withdrawn. He still reports of hearing voices. Patient still appears paranoid and delusional. He reports depressed mood and feelings of hopelessness and helplessness. He is taking medication and denies any side effects. He needs more time for socialization. Supportive therapy and psychoeducation were given. Medication Change: Yes Medical Record Reviewed: Yes Mental Status Examination - Cognitive Function Orientation: Person, Place, Situation, Time Memory: Intact Attention: WNL Concentration: Poor Association: Loose Fund of Knowledge: WNL - Mood Mood: Depressed, Anxious - Affect Affect: Broad, Depressed - Speech Speech: Soft - Formal Thought Process Formal Thought Process: Hallucinations, Delusions, Paranoia, Loosening of associations, Flight of ideas - Suicidal Ideation Suicidal Ideation: No - Homicidal Ideation Homicidal Ideation: No Goal/Treatment Plan - Goal/Treatment Plan Need for Continued Stay: Discharge may exacerbated symptoms, Severe functional impairment Progress Toward Problem(s) and Goals/Treatment Plan: Schizoaffective disorder bipolar type CBT Psychoeducation Supportive therapy, group therapy, individual therapy Risperdal 2 mg by mouth twice a day Depakote 500 mg PO BID Trazodone 50 mg by mouth daily at bedtime Alcohol use disorder severe CBT Psychoeducation Supportive therapy, individual therapy Use [place] for abstinence Alcohol withdrawal CBT Psychoeducation Supportive therapy, individual therapy Ativan prn - Smoking Cessation Smoking Cessation Initiated: No
[2017-03-29] MEDS: Divalproex 500 mg DR Tab PO SCH ×2 (11:00→17:14)
[2017-03-29] MEDS: Albuterol HFA 90 mcg/actuation (8 g) INH PRN (17:22)
[2017-03-29] MEDS: Bacitracin Ointment 30 GM TUBE TOP SCH (17:59)
[2017-03-30] MEDS: Bacitracin Ointment 30 GM TUBE TOP SCH ×3 (09:21→17:30)
[2017-03-30] MEDS: Divalproex 500 mg DR Tab PO SCH (09:22)
--- NOTE | 2017-03-30 10:41 | PCM.PYCHPN ---
Psychiatric Progress Note - Psychiatric Progress Note Patient seen today, length of contact: 15 min Patient Chief Complaint: "I dont want to take depakote." Problems Identified/Issues Discussed: Patient seen and evaluated, chart reviewed and discussed with the nurse. Today pt reports that he felt increasingly drowsy form Depakote. He doesn't want to take Depakote and is asking for something else for racing of thoughts. Patient appears more organized but remained isolated, confined and withdrawn. He still reports of hearing voices. Patient still appears paranoid and delusional. He reports depressed mood and feelings of hopelessness and helplessness. He is taking medication and denies any side effects. He needs some time for socialization. Supportive therapy and psychoeducation were given. Medication Change: Yes (stop depakote) Medical Record Reviewed: Yes Mental Status Examination - Cognitive Function Orientation: Person, Place, Situation, Time Memory: Intact Attention: WNL Concentration: Poor Association: Loose Fund of Knowledge: WNL - Mood Mood: Depressed, Anxious - Affect Affect: Broad, Depressed - Formal Thought Process Formal Thought Process: Hallucinations, Delusions, Loosening of associations, Flight of ideas - Suicidal Ideation Suicidal Ideation: No - Homicidal Ideation Homicidal Ideation: No Goal/Treatment Plan - Goal/Treatment Plan Need for Continued Stay: Discharge may exacerbated symptoms, Severe functional impairment Progress Toward Problem(s) and Goals/Treatment Plan: Schizoaffective disorder bipolar type CBT Psychoeducation Supportive therapy, group therapy, individual therapy Risperdal 2 mg by mouth twice a day stop Depakote 500 mg PO BID Trazodone 50 mg by mouth daily at bedtime Alcohol use disorder severe CBT Psychoeducation Supportive therapy, individual therapy Use [place] for abstinence Alcohol withdrawal CBT Psychoeducation Supportive therapy, individual therapy Ativan prn - Smoking Cessation Smoking Cessation Initiated: No
[2017-03-30] MEDS: Albuterol HFA 90 mcg/actuation (8 g) INH PRN (14:21)
[2017-03-30] MEDS: Divalproex 250 mg DR Tab PO SCH (18:17)
[2017-03-31] MEDS: Divalproex 250 mg DR Tab PO SCH ×2 (09:04→17:25)
[2017-03-31] MEDS: Bacitracin Ointment 30 GM TUBE TOP SCH ×3 (09:06→17:48)
[2017-03-31] MEDS: Albuterol HFA 90 mcg/actuation (8 g) INH PRN (09:47)
--- NOTE | 2017-03-31 11:46 | PCM.PYCHPN ---
Psychiatric Progress Note - Psychiatric Progress Note Patient seen today, length of contact: 15 min Patient Chief Complaint: I was feeling very anxious yesterday Problems Identified/Issues Discussed: Patient seen and evaluated, chart reviewed and discussed with the nurse. Patient appeared more organized and less internally preoccupied. Patient reports that he yesterday he was feeling very anxious so he started taking Depakote. He reported racing of thoughts and flight of ideas. He still reports hearing voices. Patient still appears paranoid and delusional. He remained isolated and withdrawn, and denies any suicidal ideation or homicidal ideation. He is taking medications and denied any side effects. He needs more time for stabilization. Supportive therapy and psychoeducation were given. Medication Change: Yes (Start Depakote) Medical Record Reviewed: Yes Mental Status Examination - Cognitive Function Orientation: Person, Place, Situation, Time Memory: Intact Attention: WNL Concentration: Poor Association: WNL Fund of Knowledge: Poor - Mood Mood: Depressed, Anxious - Affect Affect: Broad, Depressed - Speech Speech: Soft - Formal Thought Process Formal Thought Process: Hallucinations, Delusions, Paranoia, Flight of ideas - Suicidal Ideation Suicidal Ideation: No - Homicidal Ideation Homicidal Ideation: No Goal/Treatment Plan - Goal/Treatment Plan Need for Continued Stay: Severe depression anxiety, Severe functional impairment Progress Toward Problem(s) and Goals/Treatment Plan: Schizoaffective disorder bipolar type CBT Psychoeducation Supportive therapy, group therapy, individual therapy Risperdal 2 mg by mouth twice a day Start Depakote 250 mg PO BID Neurontin 300 mg by mouth twice a day Trazodone 50 mg by mouth daily at bedtime Alcohol use disorder severe CBT Psychoeducation Supportive therapy, individual therapy Use [place] for abstinence Alcohol withdrawal CBT Psychoeducation Supportive therapy, individual therapy Ativan prn - Smoking Cessation Smoking Cessation Initiated: No
[2017-03-31 17:27] VITALS: O2SAT 65
[2017-03-31] MEDS: Magnesium Hydroxide Susp 30 ml UD PO PRN (17:27)
[2017-04-01] MEDS: Bacitracin Ointment 30 GM TUBE TOP SCH ×3 (09:08→17:26)
[2017-04-01] MEDS: Divalproex 250 mg DR Tab PO SCH ×3 (09:08→17:25)
--- NOTE | 2017-04-01 16:54 | PCM.PYCHPN ---
Psychiatric Progress Note - Psychiatric Progress Note Patient seen today, length of contact: 15 min Patient Chief Complaint: I am feeling midway better Problems Identified/Issues Discussed: Patient seen and evaluated, chart reviewed and discussed with the nurse. Pt appeared organized and was somewhat cooperative with interview but appeared withdrawn. He reports that he is feeling better since his admission and is learning basic coping mechanisms. However, he reports that he continues to experience HI, SI, delusions and audio and visual hallucinations. After a few minutes he pulled his covers over his head and expressed that he wanted to be alone. He is taking medications and denied any side effects. He needs more time for stabilization. Supportive therapy and psychoeducation were given. Medication Change: Yes (Start Depakote) Medical Record Reviewed: Yes Mental Status Examination - Cognitive Function Orientation: Person, Place, Situation, Time Memory: Intact Attention: WNL Concentration: Poor Association: WNL Fund of Knowledge: Poor - Mood Mood: Depressed, Anxious - Affect Affect: Broad, Depressed - Speech Speech: Soft - Formal Thought Process Formal Thought Process: Hallucinations, Delusions, Paranoia, Flight of ideas - Suicidal Ideation Suicidal Ideation: No - Homicidal Ideation Homicidal Ideation: No Goal/Treatment Plan - Goal/Treatment Plan Need for Continued Stay: Severe depression anxiety, Severe functional impairment Progress Toward Problem(s) and Goals/Treatment Plan: Schizoaffective disorder bipolar type CBT Psychoeducation Supportive therapy, group therapy, individual therapy Risperdal 2 mg by mouth twice a day Start Depakote 250 mg PO BID Neurontin 300 mg by mouth twice a day Trazodone 50 mg by mouth daily at bedtime Alcohol use disorder severe CBT Psychoeducation Supportive therapy, individual therapy Use [place] for abstinence Alcohol withdrawal CBT Psychoeducation Supportive therapy, individual therapy Ativan prn
[2017-04-02] MEDS: Bacitracin Ointment 30 GM TUBE TOP SCH ×3 (09:21→17:28)
[2017-04-02] MEDS: Divalproex 250 mg DR Tab PO SCH (09:34)
--- NOTE | 2017-04-02 15:42 | PCM.PYCHPN ---
Psychiatric Progress Note - Psychiatric Progress Note Patient seen today, length of contact: 15 min Patient Chief Complaint: "I am feeling midway better" Problems Identified/Issues Discussed: The pt is seen, chart reviewed, case discussed with staff. Pt continues to report auditory hallucinations and difficulty with sleep. Symptoms are improving but needs more time to stabilize. Pt reported that he does not want to take Depakote because it causes nausea and vomiting. Same with neurontin. He agrees to continue risperidone. He reports no other side effects with medications. Seroquel added for insomnia Pt reported interest in speaking with community mental health social worker before potential discharge to discuss longer term treatment. After care discussed, support and psychoeducation given. Medication Change: Yes (Stop Depakote, neurontin) Medical Record Reviewed: Yes Mental Status Examination - Cognitive Function Orientation: Person, Place, Situation, Time Memory: Intact Attention: WNL Concentration: Poor Association: WNL Fund of Knowledge: Poor - Mood Mood: Depressed, Anxious - Affect Affect: Broad, Depressed - Speech Speech: Soft - Formal Thought Process Formal Thought Process: Hallucinations, Delusions, Paranoia, Flight of ideas - Suicidal Ideation Suicidal Ideation: No - Homicidal Ideation Homicidal Ideation: No Goal/Treatment Plan - Goal/Treatment Plan Need for Continued Stay: Severe depression anxiety, Discharge may exacerbated symptoms, Severe functional impairment Progress Toward Problem(s) and Goals/Treatment Plan: Schizoaffective disorder bipolar type CBT Psychoeducation Supportive therapy, group therapy, individual therapy Risperdal 2mg by mouth twice a day Stop Depakote 250 mg PO BID Neurontin also stopped Seroquel added Alcohol use disorder severe CBT and [place] Psychoeducation Supportive therapy, individual therapy Use [place] for abstinence Alcohol withdrawal Psychoeducation Supportive therapy Ativan PRN Estimated Date of D/C: 04/04/17
[2017-04-03 07:43] VITALS: TEMP 97.9
--- NOTE | 2017-04-03 09:33 | PCM.BM ---
<Bina Hensley - Last Filed: 04/03/17 09:32> Treatment Plan Problems - Problems identified on initial assessmt depression Date Initiated: 03/26/17 Time Initiated: 20:43 Assessment reference: NA Status: Active Comment: positive for THC Treatment assets and liabiliti Patient Assests: ADL independent, negotiates basic needs Patient Liabilities: live alone, poor support system, substance abuse, medical problems - Mil[place] Protocol Maintain good personal hygiene: daily Encourage regular showers, daily Remind patient to perform daily oral care Conduct patient checks and document Observation sheet: Q15 minutes Maintain personal safety: every shift Educate patient to report safety concerns to staff, every shift Monitor environment for contraband/sharps Medication safety: Monitor for expected outcome, potential side effects: every shift, Assess barriers to learning: every shift, Assess readiness for medication education: every shift Milieu Narrative: Schizoaffective disorder bipolar type CBT Psychoeducation Supportive therapy, group therapy, individual therapy Risperdal 2mg by mouth twice a day Stop Depakote 250 mg PO BID Neurontin also stopped Seroquel added Alcohol use disorder severe CBT and [place] Psychoeducation Supportive therapy, individual therapy Use [place] for abstinence Alcohol withdrawal Psychoeducation Supportive therapy Ativan PRN Family Contact Family involvement: Famliy/SO not involved - Outside Agency Agency 1 Agency contact name: [facility] Agency contact number: - Goals for Treatment Patient goals for treatment: "I want to go back to [facility]." Discharge/Continuing Care - Education Needs Education Needs: Patient Medication, Patient Coping Skills, Patient Community resources - Discharge Discharge Criteria: Tolerates medication w/o severe side effects, Free of Suicidal thoughts Discharge to:: Snf - Treatment Team Participation Patient/Family/SO Statement: Schizoaffective disorder bipolar type CBT Psychoeducation Supportive therapy, group therapy, individual therapy Risperdal 2mg by mouth twice a day Stop Depakote 250 mg PO BID Neurontin also stopped Seroquel added Alcohol use disorder severe CBT and [place] Psychoeducation Supportive therapy, individual therapy Use [place] for abstinence Alcohol withdrawal Psychoeducation Supportive therapy Ativan PRN Discussed with Family/SO: No Was Patient/Family/SO present at Treatment Team Meeting: Yes Treatment Plan Review Patient participation: Yes Family/SO/Caregiver participation: No - Problem depression Time Initiated: 20:43 <Scot Zelaya - Last Filed: 04/03/17 18:55> - Diagnosis (1) Schizoaffective disorder Status: Acute Interventions: 03/27/17 11:16 * Assess/adjust medications daily and /or as needed * See patient on an individual basis 7x/week to assess status of hallucinations * Discuss risks, benefits, side effects and alternatives of medications * 04/03/17 18:55 * Assess/adjust medications daily and /or as needed * Discuss risks, benefits, sided effects and alternatives of medications * See patient on an individual basis 7x/week to assess level of delusional thoughts/ideation *
[2017-04-03] MEDS: Bacitracin Ointment 30 GM TUBE TOP SCH ×3 (09:36→21:09)
[2017-04-03] MEDS: Magnesium Hydroxide Susp 30 ml UD PO PRN (14:03)
--- NOTE | 2017-04-03 14:10 | PCM.PYCHPN ---
Psychiatric Progress Note - Psychiatric Progress Note Patient seen today, length of contact: 15 min Patient Chief Complaint: "I have delusions of hearing and feel visually impaired." Problems Identified/Issues Discussed: The pt. is seen, chart reviewed, case discussed with staff. Pt. continues to report auditory hallucinations and difficulty with sleep. He also reports having visual hallucinations today. Pt. needs more time to stabilize. Pt. is compliant with medications and reports no side-effects. After care discussed, support and psychoeducation given.. Medication Change: Yes (Stop Depakote, neurontin) Medical Record Reviewed: Yes Mental Status Examination - Cognitive Function Orientation: Person, Place, Situation, Time Memory: Intact Attention: WNL Concentration: Poor Association: WNL Fund of Knowledge: Poor - Mood Mood: Depressed, Anxious - Affect Affect: Broad, Depressed - Speech Speech: Soft - Formal Thought Process Formal Thought Process: Hallucinations, Delusions, Paranoia, Flight of ideas - Suicidal Ideation Suicidal Ideation: No - Homicidal Ideation Homicidal Ideation: No Goal/Treatment Plan - Goal/Treatment Plan Need for Continued Stay: Severe depression anxiety, Discharge may exacerbated symptoms, Severe functional impairment Progress Toward Problem(s) and Goals/Treatment Plan: Schizoaffective disorder bipolar type CBT Psychoeducation Supportive therapy, group therapy, individual therapy Risperdal 2mg by mouth twice a day Stop Depakote 250 mg PO BID Neurontin also stopped Seroquel added Alcohol use disorder severe CBT and [place] Psychoeducation Supportive therapy, individual therapy Use [place] for abstinence Alcohol withdrawal Psychoeducation Supportive therapy Ativan PRN Estimated Date of D/C: 04/04/17
--- NOTE | 2017-04-03 14:16 | PCM.PYCHPN ---
Psychiatric Progress Note - Psychiatric Progress Note Patient seen today, length of contact: 15 min Patient Chief Complaint: "I am not well" Problems Identified/Issues Discussed: The pt. is seen, chart reviewed, case discussed with staff. Pt. continues to report auditory hallucinations and difficulty with sleep. He also reports having visual hallucinations today. Pt. needs more time to stabilize. Pt. is compliant with medications and reports no side-effects. After care discussed, support and psychoeducation given.. Medication Change: Yes (Stop Depakote, neurontin) Medical Record Reviewed: Yes Mental Status Examination - Cognitive Function Orientation: Person, Place, Situation, Time Memory: Intact Attention: WNL Concentration: Poor Association: WNL Fund of Knowledge: Poor - Mood Mood: Depressed, Anxious - Affect Affect: Broad, Depressed - Speech Speech: Soft - Formal Thought Process Formal Thought Process: Hallucinations, Delusions, Paranoia, Flight of ideas - Suicidal Ideation Suicidal Ideation: No - Homicidal Ideation Homicidal Ideation: No Goal/Treatment Plan - Goal/Treatment Plan Need for Continued Stay: Severe depression anxiety, Discharge may exacerbated symptoms, Severe functional impairment Progress Toward Problem(s) and Goals/Treatment Plan: Schizoaffective disorder bipolar type CBT Psychoeducation Supportive therapy, group therapy, individual therapy Risperdal 2mg by mouth twice a day Stop Depakote 250 mg PO BID Neurontin also stopped Seroquel added Alcohol use disorder severe CBT and [place] Psychoeducation Supportive therapy, individual therapy Use [place] for abstinence Alcohol withdrawal Psychoeducation Supportive therapy Ativan PRN Estimated Date of D/C: 04/04/17
[2017-04-04 07:47] VITALS: BP 105/65; PULSE 73; RESP 17
[2017-04-04] MEDS: Bacitracin Ointment 30 GM TUBE TOP SCH ×2 (09:57→13:04)
[2017-04-04] MEDS: Magnesium Hydroxide Susp 30 ml UD PO PRN (10:46)
[2017-04-04] MEDS: Albuterol HFA 90 mcg/actuation (8 g) INH PRN (13:05)
--- NOTE | 2017-04-04 15:27 | PCM.PYCHPN ---
Psychiatric Progress Note - Psychiatric Progress Note Patient seen today, length of contact: 15 min Patient Chief Complaint: "Medications have been working." Problems Identified/Issues Discussed: The pt. is seen, chart reviewed, case discussed with staff. Pt. continues to report having some visual and auditory hallucinations, but claims that they are "more manageable." Symptoms are improving but needs more time to stabilize. He is still irate and somewhat paranoid. Pt. is compliant with medications and reports no side-effects. After care discussed, support and psychoeducation given. Medication Change: No Medical Record Reviewed: Yes Mental Status Examination - Cognitive Function Orientation: Person, Place, Situation, Time Memory: Intact Attention: WNL Concentration: Poor Association: WNL Fund of Knowledge: Poor - Mood Mood: Depressed, Anxious - Affect Affect: Broad, Depressed - Speech Speech: Soft - Formal Thought Process Formal Thought Process: Hallucinations, Delusions, Paranoia, Flight of ideas - Suicidal Ideation Suicidal Ideation: No - Homicidal Ideation Homicidal Ideation: No Goal/Treatment Plan - Goal/Treatment Plan Need for Continued Stay: Severe depression anxiety, Discharge may exacerbated symptoms, Severe functional impairment Progress Toward Problem(s) and Goals/Treatment Plan: Schizoaffective disorder bipolar type -CBT -Psychoeducation -Supportive therapy, group therapy, individual therapy -Risperdal 2mg by mouth twice a day -Seroquel 100mg PO HS Alcohol use disorder severe -CBT and NJ -Psychoeducation -Supportive therapy, individual therapy -Use NJ for abstinence Alcohol withdrawal -Psychoeducation -Supportive therapy -Ativan PRN Estimated Date of D/C: 04/05/17 - Smoking Cessation Smoking Cessation Initiated: No
--- NOTE | 2017-04-04 18:34 | PCM.PYCHDC ---
Mental Status Examination - Mental Status Examination Orientation: Person, Place, Situation, Time Memory: Intact Mood: Depressed, Anxious Affect: Constricted Speech: Appropriate Attention: WNL Concentration: WNL Association: WNL Fund of Knowledge: WNL Formal Thought Process: Hallucinations Suicidal Ideation: No Current Homicidal Ideation?: No Discharge Summary - Discharge Note Reason for Hospitalization: Schizoaffective d/o-bipolar type, alcohol use d/o, alcohol withdrawal Psychiatric History (includes Medical, Family, Personal Hx): Hx. of schizoaffective d/o, bipolar d/o, depression, anxiety Consultations:: List each consultation separately and include: 1. Reason for request. 2. Findings. 3. Follow-up Summary of Hospital Course include:: 1. Description of specific treatment plan utilized for patients during their course of treatmen. 2. Summarize the time- course for resolution of acute symptoms and/or regressed behaviors. 3. Describe issues identified and worked on during hospitalization. 4. Describe medication utilized. 5. Describe medical problems identified and treated. 6. Reassessment of suicide risk Summary of Hospital Course: The pt. was admitted and started on treatment with psychotherapy, support, psychoeducation, and medications. AL and CBT used. The pt. attended groups and activities, as well as milieu therapy. All the risks and benefits of medications are discussed and the patient understood and agreed. The pt. improved with the treatments provided. After care discussed with patient. He was banned by PACMadeline and STEFFI and we referred him to [facility] On last day, pt. became highly intimidating and threatening to other patients. He was approached by psychiatric team, and the pt. agreed to leave on 04/04/17. - Final Diagnosis (DSM 5) Condition upon Discharge: IMPROVED DSM 5: Schizoaffective d/o-bipolar type Alcohol use d/o-severe Alcohol withdrawal Disposition: AGAINST MEDICAL ADVICE Follow-up Treatment Plan: Continue meds, but refused rx saying he had enough Follow after care plan as discussed. Use relapse prevention skills. Return to ER or call 911 if suicidal, homicidal, or symptoms relapse. Stay away from stress, alcohol, and drugs. See primary doctor one a year. - Smoking Cessation Smoking Cessation Medication prescribed: No - Antipsychotic Medications Pt discharged on 2 or more routine antipsychotic medications: No
== END 2017-04-04 15:48 | disposition left against medical advice (07) | DRG 430 ==
LOC: C.ER 16:52 → C.5E 18:48
PROC: GZHZZZZ Group Psychotherapy (ICD-10-PCS; principal; 2017-03-26)
PROC: GZ58ZZZ Individual Psychotherapy, Cognitive-Behavioral (ICD-10-PCS; 2017-03-26)
PROC: GZ56ZZZ Individual Psychotherapy, Supportive (ICD-10-PCS; 2017-03-26)
PROC: HZ56ZZZ Individual Psychotherapy for Substance Abuse Treatment, Psychoeducation (ICD-10-PCS; 2017-03-26)
PROC: HZ59ZZZ Individual Psychotherapy for Substance Abuse Treatment, Supportive (ICD-10-PCS; 2017-03-26)
DX: F25.0 Schizoaffective disorder, bipolar type (principal); R45.850 Homicidal ideations; R45.851 Suicidal ideations; F10.239 Alcohol dependence with withdrawal, unspecified; I10 Essential (primary) hypertension; E11.9 Type 2 diabetes mellitus without complications; E78.00 Pure hypercholesterolemia, unspecified; F12.90 Cannabis use, unspecified, uncomplicated; F22 Delusional disorders; G47.00 Insomnia, unspecified; G47.30 Sleep apnea, unspecified; H10.9 Unspecified conjunctivitis; J45.909 Unspecified asthma, uncomplicated; Z79.899 Other long term (current) drug therapy; Z91.5 Personal history of self-harm

== ENCOUNTER 2017-04-04 19:15 | Emergency (ER) | payer MEDICAID, OTHER ==
[2017-04-04 19:16] VITALS: BMI 35.9
[2017-04-04 19:23] VITALS: BP 130/80; PULSE 70; RESP 14; TEMP 99; O2SAT 98
--- NOTE | 2017-04-04 20:31 | C.PDOC ---
History Of Present Illness 27 y/o male presents to ED with complaints of scratchy throat pain worse with swallowing for 2 weeks. Patient reports pain is on both sides of throat but worse on left side. Patient also reports cough, congestion and cold sweats but denies taking any medication. Denies drooling, vomiting, fever, chest pain, sob or any other complaints at this time. Time Seen by Provider: 04/04/17 19:25 Chief Complaint (Nursing): ENT Problem History Per: Patient History/Exam Limitations: None Onset/Duration Of Symptoms: Days Current Symptoms Are (Timing): Still Present Past Medical History Reviewed: Historical Data, Nursing Documentation, Vital Signs Vital Signs: Last Vital Signs Temp 99 F 04/04/17 19:21 Pulse 70 04/04/17 19:21 Resp 14 04/04/17 19:21 BP 130/80 04/04/17 19:21 Pulse Ox 98 04/04/17 20:43 - Medical History PMH: Anxiety, Asthma, Bipolar Disorder, Depression, Diabetes (per pt), Fractures (hx. right wrist), HTN, Hypercholesterolemia, Migraine, Schizophrenia , Sleep Apnea - [facility] Procedures EXTRACTION OF LEFT FOOT SKIN, EXTERNAL APPROACH (11/11/16) EXTRACTION OF RIGHT FOOT SKIN, EXTERNAL APPROACH (11/11/16) GROUP PSYCHOTHERAPY (11/11/16) INDIVIDUAL PSYCHOTHERAPY, BEHAVIORAL (11/11/16) INDIVIDUAL PSYCHOTHERAPY, SUPPORTIVE (05/07/16) MEDICATION MANAGEMENT (05/07/16) Family History: States: No Known Family Hx - Social History Hx Tobacco Use: Yes Hx Alcohol Use: Yes Hx Substance Use: Yes - Immunization History Hx Tetanus Toxoid Vaccination: No Hx Influenza Vaccination: No Hx Pneumococcal Vaccination: No Review Of Systems Except As Marked, All Systems Reviewed And Found Negative. Constitutional: Positive for: Sweats. Negative for: Fever, Chills ENT: Positive for: Nose Congestion, Throat Pain Cardiovascular: Negative for: Chest Pain Respiratory: Positive for: Cough. Negative for: Shortness of Breath Gastrointestinal: Negative for: Nausea, Vomiting Skin: Negative for: Rash Physical Exam - Physical Exam Appears: Non-toxic Skin: Normal Color, Warm, No Rash Head: Atraumatic, Normacephalic Eye(s): bilateral: Normal Inspection, PERRL, EOMI Ear(s): Bilateral: Normal Oral Mucosa: Moist Throat: Erythema (mild), No Exudate, No Drooling Neck: Normal ROM, Supple Lymphatic: Adenopathy (anterior cervical lymphadenopathy) Chest: Symmetrical Cardiovascular: Rhythm Regular, No Friction Rub, No Murmur Respiratory: Normal Breath Sounds, No Rales, No Rhonchi, No Wheezing Gastrointestinal/Abdominal: Soft, No Tenderness, No Guarding, No Rebound Extremity: Normal ROM, Capillary Refill (<2 seconds) Neurological/Psych: Oriented x3, Normal Speech, Normal Cognition, Normal Cranial Nerves, Normal Motor Gait: Steady ED Course And Treatment O2 Sat by Pulse Oximetry: 98 (RA) Pulse Ox Interpretation: Normal Medical Decision Making Medical Decision Making: The patient is requesting neck xrays as he feels like his neck is "tight." Soft tissue neck ordered to r/o epiglottitis. The neck xrays are negative. On re-exam , the patient reports improvement of symptoms. Airways are patent, no drooling. heart is RRR lungs are CTA. Disposition - Disposition Referrals: [facility] [Outside] Disposition: HOME/ ROUTINE Disposition Time: 20:41 Condition: GOOD Additional Instructions: Follow up with the medical doctor within 1-2 days, Return if worsened. Prescriptions: Amoxicillin [Amoxil 500 mg Cap] 500 mg PO TID #30 cap predniSONE [Prednisone] 20 mg PO BID #10 tab Instructions: Pharyngitis (ED) Forms: [facility] (Yakut) - Clinical Impression Clinical Impression: Pharyngitis - PA / WELLNESS RN / Resident Statement MD/DO has reviewed & agrees with the documentation as recorded. - Scribe Statement The provider has reviewed the documentation as recorded by the Ricky Kwan All medical record entries made by the Ricky were at my direction and personally dictated by me. I have reviewed the chart and agree that the record accurately reflects my personal performance of the history, physical exam, medical decision making, and the department course for this patient. I have also personally directed, reviewed, and agree with the discharge instructions and disposition.
--- NOTE | 2017-04-05 09:39 | RAD ---
PROCEDURE: Radiographs of the neck (soft tissue). HISTORY: neck and throat pain COMPARISON: None. TECHNIQUE: Frontal and Lateral Radiographs of the neck, optimized for soft tissue visualization. FINDINGS: SOFT TISSUES: Unremarkable. No radiopaque foreign body seen. CERVICAL SPINE: Grossly unremarkable. OTHER FINDINGS: None. IMPRESSION: Unremarkable radiographs of the soft tissues of the neck.
== END 2017-04-04 20:49 | disposition home or self-care (01) ==
LOC: C.ER 19:15
DX: J02.9 Acute pharyngitis, unspecified (principal)

== ENCOUNTER 2017-04-13 16:11 | Inpatient (IN) | payer MEDICAID, OTHER ==
[2017-04-13 16:11] VITALS: BMI 35.9
--- NOTE | 2017-04-13 16:38 | C.PDOC ---
History Of Present Illness 27 yr old male presents to the ER requesting detox from ecstasy and alcohol. Patient denies SI, HI, hallucinations, chest pain, SOB, nausea, vomiting, weakness or numbness. Time Seen by Provider: 04/13/17 16:30 Chief Complaint (Nursing): Substance Abuse History Per: Patient History/Exam Limitations: no limitations Onset/Duration Of Symptoms: Days Suicide/Self Injury Attempted (Context): None Involuntary Hold By: None Recent travel outside of the [place]: No Past Medical History Reviewed: Historical Data, Nursing Documentation, Vital Signs Vital Signs: Last Vital Signs Temp 98.8 F 04/13/17 16:15 Pulse 107 H 04/13/17 16:15 Resp 18 04/13/17 16:15 BP 116/88 04/13/17 16:15 Pulse Ox 97 04/13/17 18:29 - Medical History PMH: Anxiety, Asthma, Bipolar Disorder, Depression, Diabetes (per pt), Fractures (hx. right wrist), HTN, Hypercholesterolemia, Migraine, Schizophrenia , Sleep Apnea - [facility] Procedures EXTRACTION OF LEFT FOOT SKIN, EXTERNAL APPROACH (11/11/16) EXTRACTION OF RIGHT FOOT SKIN, EXTERNAL APPROACH (11/11/16) GROUP PSYCHOTHERAPY (03/26/17) INDIV PSYCHOTHERAPY FOR SUBSTANCE ABUSE TREATMENT, SUPPORT (03/26/17) INDIV PSYCHOTHERAPY FOR SUBSTANCE ABUSE, PSYCHOEDUCATION (03/26/17) INDIVIDUAL PSYCHOTHERAPY, BEHAVIORAL (11/11/16) INDIVIDUAL PSYCHOTHERAPY, COGNITIVE-BEHAVIORAL (03/26/17) INDIVIDUAL PSYCHOTHERAPY, SUPPORTIVE (03/26/17) MEDICATION MANAGEMENT (05/07/16) Family History: States: No Known Family Hx - Social History Hx Tobacco Use: Yes Hx Alcohol Use: Yes Hx Substance Use: Yes - Immunization History Hx Tetanus Toxoid Vaccination: No Hx Influenza Vaccination: No Hx Pneumococcal Vaccination: No Review Of Systems Except As Marked, All Systems Reviewed And Found Negative. Cardiovascular: Negative for: Chest Pain Respiratory: Negative for: Shortness of Breath Gastrointestinal: Negative for: Nausea, Vomiting Neurological: Negative for: Weakness, Numbness Psych: Negative for: Suicidal ideation Physical Exam - Physical Exam Appears: Non-toxic, No Acute Distress Skin: Normal Color, Warm, Dry, No Rash Head: Atraumatic, Normacephalic Oral Mucosa: Moist Chest: Symmetrical, No Tenderness Cardiovascular: Rhythm Regular, No Murmur Respiratory: Normal Breath Sounds, No Rales, No Rhonchi, No Wheezing Neurological/Psych: Oriented x3, Normal Speech, Normal Motor ED Course And Treatment - Laboratory Results Result Diagrams: 04/13/17 17:22 04/13/17 17:22 O2 Sat by Pulse Oximetry: 97 (RA) Pulse Ox Interpretation: Normal Progress Note: Patient was informed there are beds available. After being informed, patient requests to have a psych evaluation. Crisis team made aware regarding patient. 18:30: Patient is medically cleared. Medical Decision Making Medical Decision Making: PLAN: * Alcohol Serum * Drug Screen * Acetaminophen Level * CBC * CMP * Urinalysis 645: pt accepted to pysch. medically clear Disposition - Disposition Disposition: HOME/ ROUTINE Disposition Time: 16:37 Condition: STABLE Additional Instructions: please call for detox beds. return to er with worsening symptoms or concerns. Instructions: Abuse of Alcohol (ED), Polysubstance Abuse (ED) Forms: [facility] (Czech) - Clinical Impression Clinical Impression: Drug abuse, Schizophrenia - Scribe Statement The provider has reviewed the documentation as recorded by the Ricky Méndez Provider Attestation: All medical record entries made by the Brianibe were at my direction and personally dictated by me. I have reviewed the chart and agree that the record accurately reflects my personal performance of the history, physical exam, medical decision making, and the department course for this patient. I have also personally directed, reviewed, and agree with the discharge instructions and disposition. Decision To Admit - Pt Status Changed To: Hospital Disposition Of: Inpatient - Admit Certification Admit to Inpatient:: After my assessment, the patient will require hospitalization for at least two midnights. This is because of the severity of symptoms shown, intensity of services needed, and/or the medical risk in this patient being treated as an outpatient. - InPatient: Physician Admission Certification: I certify that this patient requires 2 or more midnights of care for the following reason:: needs inpt pysch - . Bed Request Type: Psychiatry Admitting Physician: Scot Zelaya Patient Diagnosis: Drug abuse, Schizophrenia
[2017-04-13 17:32] LABS: BASO # 0.1 K/uL (0.0-0.2); BASO % 0.9 % (0.0-2.0); EOS % 0.6 % (0.0-4.0); LYMPH # 2.5 K/uL (1.0-4.3); LYMPH % 32.9 % (20.0-40.0); MEAN CELL VOLUME 81.2 fL (80.0-94.0); MEAN CORPUSCULAR HEMOGLOBIN 27.4 pg (27.0-31.0); MEAN CORPUSCULAR HGB CONC 33.7 g/dL (33.0-37.0); MEAN PLATELET VOLUME 9.4 fL (7.2-11.7); MONO # 0.6 K/uL (0.0-0.8); MONO % 7.9 % (0.0-10.0); NRBC % 0.1 % (0.0-2.0); RED CELL DISTRIBUTION WIDTH 14.4 % (11.5-14.5); WHITE BLOOD COUNT 7.6 K/uL (4.8-10.8)
[2017-04-13 17:39] LABS: RBC URINE < 1 /hpf (0-3); URINE BACTERIA RARE (<OCC); URINE BILIRUBIN NEGATIVE (NEGATIVE); URINE BLOOD NEGATIVE (NEGATIVE); URINE COLOR Yellow (YELLOW); URINE GLUCOSE (UA) NORMAL (Normal); URINE KETONE NEGATIVE (NEGATIVE); URINE LEUKOCYTE ESTERASE NEG Leu/uL (Negative); URINE PROTEIN NEGATIVE (NEGATIVE); WBC URINE < 1 /hpf (0-5)
[2017-04-13 17:50] LABS: ALB/GLOB RATIO 1.4 (1.0-2.1); ALCOHOL SERUM < 10 mg/dl (0-10); ALKALINE PHOSPHATASE 56 U/L (38-126); ALT/SGPT 38 U/L (21-72); AST/SGOT 24 U/L (17-59); BILIRUBIN,TOTAL 0.7 mg/dL (0.2-1.3); BLOOD UREA NITROGEN 6 mg/dL (9-20); CALCIUM 9.7 mg/dl (8.6-10.4); CARBON DIOXIDE 23 mmol/L (22-30); CHLORIDE 102 mmol/L (98-107); GFR AFRICAN-AMERICAN > 60; GLUCOSE,RANDOM 104 mg/dL (75-110); POTASSIUM 3.8 mmol/L (3.6-5.2); SODIUM 139 mmol/L (132-148); TOTAL PROTEIN 7.5 g/dL (6.3-8.3)
--- NOTE | 2017-04-13 20:08 | PCM.BM ---
<Gisselle Montano - Last Filed: 04/13/17 20:06> Treatment Plan Problems - Problems identified on initial assessmt Depression Date Initiated: 04/13/17 Time Initiated: 19:50 Assessment reference: NA Status: Active Substance Abuse Date Initiated: 04/13/17 Time Initiated: 19:50 Assessment reference: NA Status: Active Treatment assets and liabiliti Patient Assests: cooperative, ADL independent, physically healthy, negotiates basic needs, cognitively intact Patient Liabilities: live alone (Homeless), financial problems, poor support system, substance abuse (THC, Amphetamines) - Milieu Protocol Maintain good personal hygiene: daily Encourage regular showers, daily Remind patient to perform daily oral care, other Assist patient to perform ADL's (Self) Conduct patient checks and document Observation sheet: Q15 minutes (safety) Maintain personal safety: every shift Educate patient to report safety concerns to staff, every shift Monitor environment for contraband/sharps Medication safety: Monitor for expected outcome, potential side effects: every shift, Assess barriers to learning: every shift, Assess readiness for medication education: every shift <Percy Carl - Last Filed: 04/15/17 11:02> - Diagnosis (1) Schizoaffective disorder Status: Acute Interventions: 04/15/17 11:02 * Assess/adjust medications daily and /or as needed * See patient on an individual basis 7x/week to assess status of hallucinations * Discuss risks, benefits, side effects and alternatives of medications <Bina Hensley - Last Filed: 04/15/17 11:07> Family Contact Family involvement: Famliy/SO not involved - Goals for Treatment Patient goals for treatment: "I need an outpatient program." Discharge/Continuing Care - Education Needs Education Needs: Patient Medication, Patient Coping Skills, Patient Placement options, Patient Community resources - Discharge Discharge Criteria: Tolerates medication w/o severe side effects, Free of Suicidal thoughts, Reduction of target symptoms Discharge to:: Halfway - Treatment Team Participation Discussed with Family/SO: No Was Patient/Family/SO present at Treatment Team Meeting: Yes
--- NOTE | 2017-04-14 10:30 | PCM.PSYCH ---
Initial Psychiatric Evaluation - Initial Psychiatric Evaluation Type of Admission: Voluntary Legal Status: Capacity History of Present Illness and Precipitating Events: The patient is seen, chart reviewed and case discussed. This is a 27-year-old -[place] male, well known to our nurse from previous admissions [id number]. He reports that he was recently discharged from [facility] 2 days ago and they referred him to intake at the [facility] in [place] and has an appointment on the . However, he felt "very depressed and suicidal" and came to ER. He claims he did not use his Risperdal outside. He wants Depakote and Zoloft this time. 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 He reports hearing voices telling him to hurt himself and he feels like people are out to get him, reports anhedonia depressed mood and has difficulty sleeping and concentrating. He denies drug use but he took some amphetamines. He is very irate and has a menacing look but he contracted for safety and he was warned about the incident last time where he threatened and other patients and administratively discharged and he said he would control himself and use safety plan skills this time. 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 Past Psychiatric Hx: Schizoaffective; denies pcp, lsd, cocaine, heroin; admits to drinking alcohol and smoking marijuana and tabacco. Multiple admissions and vague suicide attempt. Family Psychiatric Hx: none Past Medical Hx: Anxiety, Asthma, Diabetes (per pt), Fractures (hx. right wrist) , HTN, Hypercholesterolemia, Migraines,, Sleep Apnea Current Medications: Active Medications Generic Name Dose Route Start Last Admin Trade Name Freq PRN Reason Stop Dose Admin Divalproex Sodium 500 mg 04/14/17 10:[address] PO BID CANDIDO Haloperidol 5 mg 04/14/17 10:27 Haldol PO Q1H PRN agitation, max 4x/24h Hydroxyzine HCl 50 mg 04/13/17 21:45 Atarax PO Q6H PRN Anxiety Ibuprofen 600 mg 04/13/17 21:45 Motrin Tab PO Q6H PRN Pain, moderate (4-7) Olanzapine 10 mg 04/14/17 18:00 Zyprexa PO QPM CANDIDO Pneumococcal Polyvalent Vaccine 0.5 ml 04/16/17 10:00 Pneumovax 23 Vaccine IM 04/16/17 10:01 .ONCE ONE Sertraline HCl 50 mg 04/14/17 10:30 Zoloft PO DAILY CANDIDO Trazodone HCl 100 mg 04/13/17 22:00 Desyrel PO HS PRN Insomnia Past Psychiatric History - Past Psychiatric History Previous Treatment History: Inpatient Pertinent Medical Hx (Current Medical&Sleep Prob, Allergies): Allergies Allergy/AdvReac Type Severity Reaction Status Date / Time pollen extracts Allergy REDNESS Verified 03/26/17 16:56 LORazepam [Ativan] 1 mg PO HS 03/26/17 risperiDONE [RisperDAL Tab] 1 mg PO BID 03/26/17 Review of Systems - Neurological Neurological: UNREMARKABLE - Psychiatric Psychiatric: Abnormal Sleep Pattern, Anhedonia, Anxiety, Behavioral Changes, Change in Appetite, Depression, Difficulty Concentrating, Hallucinations, Irritability, Mood Swings, Paranoia. absent: Homicidal Ideation, Suicidal Ideation Mental Status Examination - Personal Presentation Personal Presentation: Looks older than stated age - Affect Affect: Constricted - Motor Activity Motor Activity: Psychomotor Agitation (Mild) - Reliability in Providing Information Reliability in Providing Information: Fair - Speech Speech: Organized (slowed and monotonous) - Mood Mood: Depressed, Anxious - Formal Thought Process Formal Thought Process: Hallucinations, Delusions, Paranoia, Circumstantial - Cognitive Functions Orientation: Person, Place, Situation, Time Sensorium: Alert Attention/Concentration: Easily distracted Abstract Thinking: [place] Estimate of Intelligence: Below average Judgement: Imparied, as evidence by: Poor judgement, Intact, as evidence by: Insight regarding need for hospitalization Memory: Recent intact, as evidence by: Ability to recall events of the day, Remote intact, as evidenced by: Abilit to recall sig. life events - Risk Risk: Diminished functioning - Strength & Assets Inventory Strength & Assets Inventory: Cooperative - Limitations Limitations: Living alone, Other DSM 5 DX - DSM 5 DSM 5 Diagnosis: Schizoaffective disorder, depressed Personality disorder, unspecified Amphetamine use disorder, severe Rule out schizophrenia - Recommended/Plan of Treatment Treatment Recommendations and Plan of Treatment: Schizoaffective: -Zyprexa for psychosis -Depakote for mood swings and anger -Zoloft for depressive symptoms -Support and psychoeducation -Attend groups and activities -Individual therapy with CBT -Safety plan emphasized -Limit setting can structure, also for his personality disorder. Amphetamines: -Mood stabilizers should help -CT for abstinence 34 minutes Projected ELOS: 7 days Prognosis: Good with treatment Discharge Plan and Discharge Criteria: No hallucinations, delusions, suicidal ideation or other severe psychiatric symptoms Refer to IOP - Smoking Cessation Smoking Cessation Initiated: Yes
[2017-04-14] MEDS: Divalproex 500 mg DR Tab PO SCH ×2 (12:25→17:31)
[2017-04-15] MEDS: Divalproex 500 mg DR Tab PO SCH ×2 (09:49→17:18)
--- NOTE | 2017-04-15 09:54 | PCM.PYCHPN ---
Psychiatric Progress Note - Psychiatric Progress Note Patient seen today, length of contact: 15 min. Patient Chief Complaint: "I am somewhat depressed." Problems Identified/Issues Discussed: Pt. is seen, chart reviewed, and case discussed with staff. Pt. reports he is still having auditory and visual hallucinations, as well as "delusions." Pt. claims he returned b/c he overdosed on the medications that he was discharged with. Pt. still claims that he is "depressed" and agrees to cooperate with treatments given. Pt. is compliant with medications and reports no side-effects. Symptoms are improving, but needs more time to stabilize. After care discussed, support and psychoeducation given. Medication Change: No Medical Record Reviewed: Yes Mental Status Examination - Cognitive Function Orientation: Person, Place, Situation, Time Memory: Intact Attention: Poor (Easily distracted) Concentration: Poor Association: WNL Fund of Knowledge: WNL - Mood Mood: Depressed, Anxious - Affect Affect: Constricted - Speech Speech: Appropriate Additional comments: Slowed and monotonous - Formal Thought Process Formal Thought Process: Hallucinations, Delusions, Paranoia, Circumstantial - Suicidal Ideation Suicidal Ideation: No - Homicidal Ideation Homicidal Ideation: No Goal/Treatment Plan - Goal/Treatment Plan Need for Continued Stay: Remain at risks for inpatient hospitalization, Severe depression anxiety, Discharge may exacerbated symptoms, Severe functional impairment Progress Toward Problem(s) and Goals/Treatment Plan: Schizoaffective d/o-severe: Zyprexa for psychosis Depakote for mood swings and anger Zoloft for depressive symptoms Support and psychoeducation Attend groups and activities Individual therapy with CBT Safety plan emphasized Limit setting can structure, also for his personality disorder Amphetamines: Mood stabilizers should help IA for abstinence - Smoking Cessation Smoking Cessation Initiated: Yes
[2017-04-16] MEDS: Divalproex 500 mg DR Tab PO SCH ×2 (09:36→17:17)
--- NOTE | 2017-04-16 09:50 | PCM.PYCHPN ---
Psychiatric Progress Note - Psychiatric Progress Note Patient seen today, length of contact: 15 min. Patient Chief Complaint: "I am still depressed and anxious." Problems Identified/Issues Discussed: Pt. is seen, chart reviewed, and case discussed with staff. Pt. reports he is experiencing varying moods throughout the day. He states he would be angry at one moment, and then sad right after. Pt. reports that "it is possible I may have suicidal and homicidal ideation." Pt. also reports to having visual and auditory hallucinations, usually about "both violent and non- violent events." He states that he still needs some time to adjust to his medications, and reports to having side effects such as weakness, drowsiness, headache, and "dryness." Pt. also claims he has trouble sleeping, but does not want any sleeping aids. Symptoms are improving, but needs more time to stabilize. After care discussed, support and psychoeducation given. Pt. states he wants to have "a concrete after plan" and is scheduled to talk w/ SW. Medication Change: No Medical Record Reviewed: Yes Mental Status Examination - Cognitive Function Orientation: Person, Place, Situation, Time Memory: Intact Attention: Poor (Easily distracted) Concentration: Poor Association: WNL Fund of Knowledge: WNL - Mood Mood: Depressed, Anxious - Affect Affect: Constricted - Speech Speech: Appropriate - Formal Thought Process Formal Thought Process: Hallucinations, Delusions, Paranoia, Circumstantial - Suicidal Ideation Suicidal Ideation: No - Homicidal Ideation Homicidal Ideation: No Goal/Treatment Plan - Goal/Treatment Plan Need for Continued Stay: Remain at risks for inpatient hospitalization, Severe depression anxiety, Discharge may exacerbated symptoms, Severe functional impairment Progress Toward Problem(s) and Goals/Treatment Plan: Schizoaffective d/o-severe: Zyprexa for psychosis Depakote for mood swings and anger Zoloft for depressive symptoms Support and psychoeducation Attend groups and activities Individual therapy with CBT Safety plan emphasized Limit setting can structure, also for his personality disorder Amphetamines: Mood stabilizers should help [place] for abstinence - Smoking Cessation Smoking Cessation Initiated: No
[2017-04-16] MEDS ORDERED: Pneumococcal 23-Valent Vaccine IM ONE (10:00)
[2017-04-16] MEDS: Magnesium Hydroxide Susp 30 ml UD PO PRN (15:36)
[2017-04-17] MEDS: Divalproex 500 mg DR Tab PO SCH ×2 (09:41→17:35)
--- NOTE | 2017-04-17 11:14 | PCM.PYCHPN ---
Psychiatric Progress Note - Psychiatric Progress Note Patient seen today, length of contact: 15 min. Patient Chief Complaint: "I am still hearing and seeing things." Problems Identified/Issues Discussed: Pt. is seen, chart reviewed, and case discussed with staff. Pt. reports he is still having visual and auditory hallucinations about "politics, street, and religions." Pt. reports he is "bipolar" and claims to have mood swings throughout the day. He also states he is "somewhat paranoid" and has racing thoughts. Pt. also reports that he may "possibly have suicidal and homicidal ideation." Pt. states he is still adjusting to his medications. Symptoms are improving, but needs more time to stabilize. After care discussed, support and psychoeducation given. Pt. states he is open to both inpatient and outpatient treatment after discharge. Medication Change: No Medical Record Reviewed: Yes Mental Status Examination - Cognitive Function Orientation: Person, Place, Situation, Time Memory: Intact Attention: Poor (Easily distracted) Concentration: Poor Association: WNL Fund of Knowledge: WNL - Mood Mood: Depressed, Anxious - Affect Affect: Constricted - Speech Speech: Appropriate - Formal Thought Process Formal Thought Process: Hallucinations, Delusions, Paranoia, Circumstantial - Suicidal Ideation Suicidal Ideation: No - Homicidal Ideation Homicidal Ideation: No Goal/Treatment Plan - Goal/Treatment Plan Need for Continued Stay: Remain at risks for inpatient hospitalization, Severe depression anxiety, Discharge may exacerbated symptoms, Severe functional impairment Progress Toward Problem(s) and Goals/Treatment Plan: Schizoaffective d/o-severe: Zyprexa for psychosis Depakote for mood swings and anger Zoloft for depressive symptoms Support and psychoeducation Attend groups and activities Individual therapy with CBT Safety plan emphasized Limit setting can structure, also for his personality disorder Amphetamines: Mood stabilizers should help [place] for abstinence
[2017-04-18] MEDS: Divalproex 500 mg DR Tab PO SCH ×2 (09:58→17:55)
--- NOTE | 2017-04-18 09:58 | PCM.PYCHPN ---
Psychiatric Progress Note - Psychiatric Progress Note Patient seen today, length of contact: 15 min. Patient Chief Complaint: "I am still having delusions." Problems Identified/Issues Discussed: Pt. is seen, chart reviewed, and case discussed with staff. Pt. reports he is still having auditory hallucinations, but denies visual hallucinations. As per pt., the voices talk to him about "politics." Pt. reports to being paranoid, claiming he feels like someone is after him. Pt. says he feels very anxious and aggressive. Pt. also reports to having racing thoughts "when I can." Pt. reports to having suicidal ideation, but does not have plans. He also admits to having homicidal ideation. Pt. refused to take Depakote today, stating it makes him nauseous. He requested that the dosage be lowered. Symptoms are improving, but needs more time to stabilize. After care discussed, support and psychoeducation given. Pt. is waiting for response from [facility] or if that doesn't work out, long-term at [facility]. Medication Change: No Medical Record Reviewed: Yes Mental Status Examination - Cognitive Function Orientation: Person, Place, Situation, Time Memory: Intact Attention: Poor (Easily distracted) Concentration: Poor Association: WNL Fund of Knowledge: WNL - Mood Mood: Depressed, Anxious - Affect Affect: Constricted - Speech Speech: Appropriate - Formal Thought Process Formal Thought Process: Hallucinations, Delusions, Paranoia, Circumstantial - Suicidal Ideation Suicidal Ideation: No - Homicidal Ideation Homicidal Ideation: No Goal/Treatment Plan - Goal/Treatment Plan Need for Continued Stay: Remain at risks for inpatient hospitalization, Severe depression anxiety, Discharge may exacerbated symptoms, Severe functional impairment Progress Toward Problem(s) and Goals/Treatment Plan: Schizoaffective d/o-severe: Zyprexa for psychosis Depakote for mood swings and anger Zoloft for depressive symptoms Support and psychoeducation Attend groups and activities Individual therapy with CBT Safety plan emphasized Limit setting can structure, also for his personality disorder Amphetamines: Mood stabilizers should help [place] for abstinence Estimated Date of D/C: 04/22/17
[2017-04-18] MEDS: Magnesium Hydroxide Susp 30 ml UD PO PRN (10:58)
--- NOTE | 2017-04-19 09:42 | PCM.BM ---
<Bina Hensley - Last Filed: 04/19/17 09:42> Treatment Plan Problems - Problems identified on initial assessmt Depression Date Initiated: 04/13/17 Time Initiated: 19:50 Assessment reference: NA Status: Active Substance Abuse Date Initiated: 04/13/17 Time Initiated: 19:50 Assessment reference: NA Status: Active Treatment assets and liabiliti Patient Assests: cooperative, ADL independent, physically healthy, negotiates basic needs, cognitively intact Patient Liabilities: live alone (Homeless), financial problems, poor support system, substance abuse (THC, Amphetamines) - Milieu Protocol Maintain good personal hygiene: daily Encourage regular showers, daily Remind patient to perform daily oral care, other Assist patient to perform ADL's (Self) Conduct patient checks and document Observation sheet: Q15 minutes (safety) Maintain personal safety: every shift Educate patient to report safety concerns to staff, every shift Monitor environment for contraband/sharps Medication safety: Monitor for expected outcome, potential side effects: every shift, Assess barriers to learning: every shift, Assess readiness for medication education: every shift Milieu Narrative: Schizoaffective d/o-severe: Zyprexa for psychosis Depakote for mood swings and anger Zoloft for depressive symptoms Support and psychoeducation Attend groups and activities Individual therapy with CBT Safety plan emphasized Limit setting can structure, also for his personality disorder Amphetamines: Mood stabilizers should help [place] for abstinence Family Contact Family involvement: Famliy/SO not involved - Goals for Treatment Patient goals for treatment: "I need an outpatient program." Discharge/Continuing Care - Education Needs Education Needs: Patient Medication, Patient Coping Skills, Patient Placement options, Patient Community resources - Discharge Discharge Criteria: Tolerates medication w/o severe side effects, Free of Suicidal thoughts, Reduction of target symptoms Discharge to:: [facility] - Treatment Team Participation Patient/Family/SO Statement: Schizoaffective d/o-severe: Zyprexa for psychosis Depakote for mood swings and anger Zoloft for depressive symptoms Support and psychoeducation Attend groups and activities Individual therapy with CBT Safety plan emphasized Limit setting can structure, also for his personality disorder Amphetamines: Mood stabilizers should help [place] for abstinence Discussed with Family/SO: No Was Patient/Family/SO present at Treatment Team Meeting: Yes Treatment Plan Review Patient participation: Yes Family/SO/Caregiver participation: No - Problem Depression Time Initiated: 19:50 Substance Abuse Time Initiated: 19:50 <Percy Carl - Last Filed: 04/19/17 10:55> - Diagnosis (1) Schizoaffective disorder Status: Acute Interventions: 04/19/17 10:55 * Assess/adjust medications daily and /or as needed * See patient on an individual basis 7x/week to assess status of hallucinations * Discuss risks, benefits, side effects and alternatives of medications *
[2017-04-19] MEDS: Divalproex 500 mg DR Tab PO SCH ×2 (10:17→17:12)
[2017-04-19] MEDS: Magnesium Hydroxide Susp 30 ml UD PO PRN (12:48)
--- NOTE | 2017-04-19 13:50 | PCM.PYCHPN ---
Psychiatric Progress Note - Psychiatric Progress Note Patient seen today, length of contact: 15 min. Patient Chief Complaint: "I still have the same symptoms." Problems Identified/Issues Discussed: Pt. is seen, chart reviewed, and case discussed with staff. Pt. reports he is having both visual and auditory hallucinations. As per pt., the voices talk to him about "the world and things going on." Pt. reports to being paranoid, feeling like someone is after him. Pt. says he has racing thoughts periodically and cannot sleep because of them. Pt. also reports to having suicidal and homicidal ideation, but with no plans. He claims his mood varies throughtout the day, having elevated mood one moment and then depressed mood on the other. Pt. says medications are working fine except the Depakote still makes him nauseous. Symptoms are improving, but needs more time to stabilize. After care discussed, support and psychoeducation given. Pt. is waiting for response from [facility] or [facility]. Medication Change: No Medical Record Reviewed: Yes Mental Status Examination - Cognitive Function Orientation: Person, Place, Situation, Time Memory: Intact Attention: Poor (Easily distracted) Concentration: Poor Association: WNL Fund of Knowledge: WNL - Mood Mood: Depressed, Anxious - Affect Affect: Constricted - Speech Speech: Appropriate - Formal Thought Process Formal Thought Process: Hallucinations, Delusions, Paranoia, Circumstantial - Suicidal Ideation Suicidal Ideation: No - Homicidal Ideation Homicidal Ideation: No Goal/Treatment Plan - Goal/Treatment Plan Need for Continued Stay: Remain at risks for inpatient hospitalization, Severe depression anxiety, Discharge may exacerbated symptoms, Severe functional impairment Progress Toward Problem(s) and Goals/Treatment Plan: Schizoaffective d/o-severe: Zyprexa for psychosis Depakote for mood swings and anger Zoloft for depressive symptoms Support and psychoeducation Attend groups and activities Individual therapy with CBT Safety plan emphasized Limit setting can structure, also for his personality disorder Amphetamines: Mood stabilizers should help [place] for abstinence Estimated Date of D/C: 04/22/17
[2017-04-20 07:04] VITALS: O2SAT 97
[2017-04-20] MEDS: Divalproex 500 mg DR Tab PO SCH ×2 (09:54→17:28)
--- NOTE | 2017-04-20 11:12 | PCM.PYCHPN ---
Psychiatric Progress Note - Psychiatric Progress Note Patient seen today, length of contact: 15 min. Patient Chief Complaint: "I still have the same symptoms." Problems Identified/Issues Discussed: Pt. is seen, chart reviewed, and case discussed with staff. Pt. reports he is having both visual and auditory hallucinations. As per pt., the voices talk to him about "the world and things going on." Pt. reports to being paranoid, feeling like someone is after him. Pt. says he has racing thoughts periodically and cannot sleep because of them. Pt. also reports to having suicidal and homicidal ideation, but with no plans. He claims his mood varies throughtout the day, having elevated mood one moment and then depressed mood on the other. Pt. says medications are working fine except the Depakote still makes him nauseous. Symptoms are improving, but needs more time to stabilize. After care discussed, support and psychoeducation given. Pt. is waiting for response from [facility] or [facility]. Medication Change: No Medical Record Reviewed: Yes Mental Status Examination - Cognitive Function Orientation: Person, Place, Situation, Time Memory: Intact Attention: Poor (Easily distracted) Concentration: Poor Association: WNL Fund of Knowledge: WNL - Mood Mood: Depressed, Anxious - Affect Affect: Constricted - Speech Speech: Appropriate - Formal Thought Process Formal Thought Process: Hallucinations, Delusions, Paranoia, Circumstantial - Suicidal Ideation Suicidal Ideation: No - Homicidal Ideation Homicidal Ideation: No Goal/Treatment Plan - Goal/Treatment Plan Need for Continued Stay: Remain at risks for inpatient hospitalization, Severe depression anxiety, Discharge may exacerbated symptoms, Severe functional impairment Progress Toward Problem(s) and Goals/Treatment Plan: Schizoaffective d/o-severe: Zyprexa for psychosis Depakote for mood swings and anger Zoloft for depressive symptoms Support and psychoeducation Attend groups and activities Individual therapy with CBT Safety plan emphasized Limit setting can structure, also for his personality disorder Amphetamines: Mood stabilizers should help [place] for abstinence Estimated Date of D/C: 04/22/17
[2017-04-20] MEDS: Magnesium Hydroxide Susp 30 ml UD PO PRN (12:43)
[2017-04-21] MEDS: Divalproex 500 mg DR Tab PO SCH ×2 (10:09→17:37)
--- NOTE | 2017-04-21 13:46 | PCM.PYCHPN ---
Psychiatric Progress Note - Psychiatric Progress Note Patient seen today, length of contact: 15 min. Patient Chief Complaint: "I still have the same symptoms." Problems Identified/Issues Discussed: Pt. is seen, chart reviewed, and case discussed with staff. Pt. reports he is having both visual and auditory hallucinations. As per pt., the voices talk to him about "the world and things going on." Pt. reports to being paranoid, feeling like someone is after him. Pt. says he has racing thoughts periodically and cannot sleep because of them. Pt. also reports to having suicidal and homicidal ideation, but with no plans. He claims his mood varies throughtout the day, having elevated mood one moment and then depressed mood on the other. Pt. says medications are working fine except the Depakote still makes him nauseous. Symptoms are improving, but needs more time to stabilize. After care discussed, support and psychoeducation given. Pt. is waiting for response from [facility] or [facility]. Medication Change: No Medical Record Reviewed: Yes Mental Status Examination - Cognitive Function Orientation: Person, Place, Situation, Time Memory: Intact Attention: Poor (Easily distracted) Concentration: Poor Association: WNL Fund of Knowledge: WNL - Mood Mood: Depressed, Anxious - Affect Affect: Constricted - Speech Speech: Appropriate - Formal Thought Process Formal Thought Process: Hallucinations, Delusions, Paranoia, Circumstantial - Suicidal Ideation Suicidal Ideation: No - Homicidal Ideation Homicidal Ideation: No Goal/Treatment Plan - Goal/Treatment Plan Need for Continued Stay: Remain at risks for inpatient hospitalization, Severe depression anxiety, Discharge may exacerbated symptoms, Severe functional impairment Progress Toward Problem(s) and Goals/Treatment Plan: Schizoaffective d/o-severe: Zyprexa for psychosis Depakote for mood swings and anger Zoloft for depressive symptoms Support and psychoeducation Attend groups and activities Individual therapy with CBT Safety plan emphasized Limit setting can structure, also for his personality disorder Amphetamines: Mood stabilizers should help [place] for abstinence Estimated Date of D/C: 04/22/17
[2017-04-22] MEDS: Divalproex 500 mg DR Tab PO SCH ×2 (09:52→17:43)
--- NOTE | 2017-04-22 09:59 | PCM.PYCHPN ---
Psychiatric Progress Note - Psychiatric Progress Note Patient seen today, length of contact: 15 min. Patient Chief Complaint: I am feeling much better.' Problems Identified/Issues Discussed: Pt. is seen, chart reviewed, and case discussed with staff. Pt. reports improvement in his mood and psychosis. He reports improvement in the depressive and anxiety symptoms. However, When asked about his discharge date, pt. became irritated and stated he would like to stay longer. He claims the medications are not working exactly , but they help him to be somewhat clear. Pt. claims his sleep has been on and off. Symptoms are improving, but needs more time to stabilize. After care discussed, support and psychoeducation given. His plan after discharge is to go to [facility]. Medication Change: No Medical Record Reviewed: Yes Mental Status Examination - Cognitive Function Orientation: Person, Place, Situation, Time Memory: Intact Attention: WNL (Easily distracted) Concentration: WNL Association: WNL Fund of Knowledge: WNL - Mood Mood: Anxious - Affect Affect: Constricted - Speech Speech: Appropriate - Formal Thought Process Formal Thought Process: No Impairment - Suicidal Ideation Suicidal Ideation: No - Homicidal Ideation Homicidal Ideation: No Goal/Treatment Plan - Goal/Treatment Plan Need for Continued Stay: Remain at risks for inpatient hospitalization, Severe depression anxiety, Discharge may exacerbated symptoms, Severe functional impairment Progress Toward Problem(s) and Goals/Treatment Plan: Schizoaffective d/o-severe: Zyprexa for psychosis Depakote for mood swings and anger Zoloft for depressive symptoms Support and psychoeducation Attend groups and activities Individual therapy with CBT Safety plan emphasized Limit setting can structure, also for his personality disorder Amphetamines: Mood stabilizers should help [place] for abstinence Estimated Date of D/C: 04/23/17 - Smoking Cessation Smoking Cessation Initiated: No
[2017-04-23 07:38] VITALS: BP 119/72; PULSE 54; RESP 20; TEMP 98.4
--- NOTE | 2017-04-23 09:55 | PCM.PYCHDC ---
Mental Status Examination - Mental Status Examination Orientation: Person, Place, Situation, Time Memory: Intact Mood: Neutral Affect: Constricted Speech: Soft Attention: WNL Concentration: WNL Association: WNL Fund of Knowledge: WNL Formal Thought Process: No Impairment Description of patient's judgement and insight: good, fair Psychotic Thoughts and Behaviors: denies any AVH Suicidal Ideation: No Current Homicidal Ideation?: No Discharge Summary - Discharge Note Reason for Hospitalization: This is a 27-year-old -[place] Citizen male, well known to our nurse from previous admissions [id number]. He reports that he was recently discharged from [facility] 2 days ago and they referred him to intake at the [facility] in [place] and has an appointment on the . However, he felt "very depressed and suicidal" and came to ER. He claims he did not use his Risperdal outside. He wants Depakote and Zoloft this time. 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 He reports hearing voices telling him to hurt himself and he feels like people are out to get him, reports anhedonia depressed mood and has difficulty sleeping and concentrating. He denies drug use but he took some amphetamines. He is very irate and has a menacing look but he contracted for safety and he was warned about the incident last time where he threatened and other patients and administratively discharged and he said he would control himself and use safety plan skills this time. 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 Past Psychiatric Hx: Schizoaffective; denies pcp, lsd, cocaine, heroin; admits to drinking alcohol and smoking marijuana and tabacco. Multiple admissions and vague suicide attempt. Family Psychiatric Hx: none Past Medical Hx: Anxiety, Asthma, Diabetes (per pt), Fractures (hx. right wrist) , HTN, Hypercholesterolemia, Migraines,, Sleep Apnea Consultations:: List each consultation separately and include: 1. Reason for request. 2. Findings. 3. Follow-up Summary of Hospital Course include:: 1. Description of specific treatment plan utilized for patients during their course of treatmen. 2. Summarize the time- course for resolution of acute symptoms and/or regressed behaviors. 3. Describe issues identified and worked on during hospitalization. 4. Describe medication utilized. 5. Describe medical problems identified and treated. 6. Reassessment of suicide risk - Diagnosis (1) Schizoaffective disorder Current Visit: No Status: Acute Priority: High - Final Diagnosis (DSM 5) Condition upon Discharge: STABLE DSM 5: Schizoaffective d/o-severe: Zyprexa for psychosis Depakote for mood swings and anger Zoloft for depressive symptoms Support and psychoeducation Attend groups and activities Individual therapy with CBT Safety plan emphasized Limit setting can structure, also for his personality disorder Amphetamines: Mood stabilizers should help [place] for abstinence Disposition: HOME/ ROUTINE Follow-up Treatment Plan: Schizoaffective d/o-severe: Zyprexa for psychosis Depakote for mood swings and anger Zoloft for depressive symptoms Support and psychoeducation Attend groups and activities Individual therapy with CBT Safety plan emphasized Limit setting can structure, also for his personality disorder Amphetamines: Mood stabilizers should help [place] for abstinence Prescriptions/Medication Reconciliation: Divalproex [Depakote DR] 500 mg PO BID 30 Days #60 tcp OLANZapine [Zyprexa] 10 mg PO QPM #30 tab Sertraline [Zoloft] 50 mg PO DAILY #30 tab traZODone [Desyrel] 100 mg PO HS PRN #30 tab PRN Reason: Insomnia
[2017-04-23] MEDS: Divalproex 500 mg DR Tab PO SCH (10:14)
== END 2017-04-23 11:15 | disposition home or self-care (01) | DRG 430 ==
LOC: C.ER 16:11 → C.9E 18:42 → C.5E 18:54
PROVIDERS: ADMIT Psychiatry & Neurology Psychiatry; ATTEND Psychiatry & Neurology Psychiatry
PROC: GZ58ZZZ Individual Psychotherapy, Cognitive-Behavioral (ICD-10-PCS; principal; 2017-04-13)
PROC: GZ56ZZZ Individual Psychotherapy, Supportive (ICD-10-PCS; 2017-04-13)
DX: F25.1 Schizoaffective disorder, depressive type (principal); F15.20 Other stimulant dependence, uncomplicated; R45.851 Suicidal ideations; I10 Essential (primary) hypertension; F41.9 Anxiety disorder, unspecified; J45.909 Unspecified asthma, uncomplicated; E78.00 Pure hypercholesterolemia, unspecified; G47.30 Sleep apnea, unspecified; F12.90 Cannabis use, unspecified, uncomplicated; F60.9 Personality disorder, unspecified; R45.850 Homicidal ideations; F22 Delusional disorders; F17.200 Nicotine dependence, unspecified, uncomplicated

== ENCOUNTER 2017-06-01 13:24 | Emergency (ER) | payer MEDICAID, OTHER ==
[2017-06-01 13:32] VITALS: BMI 34.8
[2017-06-01 13:33] VITALS: BP 125/79; PULSE 71; RESP 18; TEMP 97.5; O2SAT 98
--- NOTE | 2017-06-01 13:53 | C.PDOC ---
History Of Present Illness Patient is a 27 year old male presents to ED for evaluation of multiple complaints. Pt complains of generalized body swelling, and cold symptoms for the past 1-2 weeks. Pt reports subjective fever. Denies nasal congestion, cough , sore throat, chest pain, or shortness of breath. Denies history of asthma, or smoking in the past. Also complaints of "recurring psych symptoms", states he ran out of his meds 1 week ago, and did not refill "because I knew I was coming back here anyway". Pt refusing to describe symptoms. Pt is a poor historian. POOR HISTORIAN MULTIPLE COMPLAINTS CO GEN BODY SWELLING, COLD SX X 1-2 WEEKS, SUBJ FEVER. DENIES NASAL HODA, COUGH SORE THROAT, CP SOB. DENIES HO ASTHMA, SMOKING. CO GEN SWELLING ALSO CO "RECURRING PSYCH SX". RAN OUT OF MEDS X 1 WEEK, DIDNT REFILL "BC I KNEW I WAS COMING BACK HERE ANYWAY". PT REFUSING TO DESCRIBE SX EXAM NONTOXIC NAD HEENT NEG LUNGS CTA B/L NO W/R/R EXT NO EDEMA ATRAUM PSYCH CALM COOPERATIVE NO ACUTE PSYCHOSIS, INTOX NEURO NO FOCAL DEF MDM PT REQUESTING ADMISSION EITHER FOR PSYCH OR FOR COLD SX. Time Seen by Provider: 06/01/17 13:36 Chief Complaint (Nursing): Psychiatric Evaluation History Per: Patient History/Exam Limitations: no limitations Onset/Duration Of Symptoms: Days (1-2 weeks) Current Symptoms Are (Timing): Still Present Recent travel outside of the [place]: No Additional History Per: Patient Past Medical History Reviewed: Historical Data, Nursing Documentation, Vital Signs Vital Signs: Last Vital Signs Temp 97.5 F L 06/01/17 13:32 Pulse 71 06/01/17 13:32 Resp 18 06/01/17 13:32 BP 125/79 06/01/17 13:32 Pulse Ox 98 06/01/17 15:03 - Medical History PMH: Anxiety, Asthma, Bipolar Disorder, Depression, Diabetes (per pt), Fractures (hx. right wrist), HTN, Hypercholesterolemia, Migraine, Schizophrenia , Sleep Apnea Denies: Hepatitis, HIV, Chronic Kidney Disease, Seizures, Sexually Transmitted Disease - [facility] Procedures EXTRACTION OF LEFT FOOT SKIN, EXTERNAL APPROACH (11/11/16) EXTRACTION OF RIGHT FOOT SKIN, EXTERNAL APPROACH (11/11/16) GROUP PSYCHOTHERAPY (03/26/17) INDIV PSYCHOTHERAPY FOR SUBSTANCE ABUSE TREATMENT, SUPPORT (03/26/17) INDIV PSYCHOTHERAPY FOR SUBSTANCE ABUSE, PSYCHOEDUCATION (03/26/17) INDIVIDUAL PSYCHOTHERAPY, BEHAVIORAL (11/11/16) INDIVIDUAL PSYCHOTHERAPY, COGNITIVE-BEHAVIORAL (04/13/17) INDIVIDUAL PSYCHOTHERAPY, SUPPORTIVE (04/13/17) MEDICATION MANAGEMENT (05/07/16) Family History: States: Unknown Family Hx - Social History Hx Tobacco Use: Yes Hx Alcohol Use: No Hx Substance Use: No - Immunization History Hx Tetanus Toxoid Vaccination: No Hx Influenza Vaccination: No Hx Pneumococcal Vaccination: No Review Of Systems Except As Marked, All Systems Reviewed And Found Negative. Constitutional: Positive for: Fever, Other (generalized body swelling) ENT: Negative for: Nose Discharge, Nose Congestion, Throat Pain Cardiovascular: Negative for: Chest Pain Respiratory: Negative for: Cough, Shortness of Breath Gastrointestinal: Negative for: Nausea, Vomiting, Abdominal Pain, Diarrhea Skin: Negative for: Rash, Bruising Neurological: Negative for: Headache, Dizziness Physical Exam - Physical Exam Appears: Non-toxic, No Acute Distress Skin: Normal Color, Warm, Dry Head: Atraumatic, Normacephalic Eye(s): bilateral: Normal Inspection Ear(s): Bilateral: Normal Nose: Normal Oral Mucosa: Moist Throat: Normal, No Erythema, No Exudate Neck: Normal ROM, Supple Chest: Symmetrical Cardiovascular: Rhythm Regular, No Murmur Respiratory: Normal Breath Sounds, No Rales, No Rhonchi, No Wheezing Gastrointestinal/Abdominal: Soft, No Tenderness Extremity: Normal ROM, No Pedal Edema Extremity: Bilateral: Atraumatic, Normal ROM Neurological/Psych: Oriented x3, Normal Speech, Other (no focal deficits; calm, cooperative, no acute psychosis, intoxication) ED Course And Treatment O2 Sat by Pulse Oximetry: 98 (RA) Pulse Ox Interpretation: Normal - Radiology CXR: Interpreted by Me CXR Interpretation: Yes: No Acute Disease Progress Note: CXR ordered and reviewed. Progress - Re-Evaluation Re-evaluation Note: 06/01/17 13:53 D/W CRISIS [facility] EVAL IN ER MED CLEAR FOR PSYCH EVAL 06/01/17 15:13 SP CRISIS EVAL: PT WAS EVAL AND DC FROM [facility] TODAY @ 1300. REPORTED DIARRHEA AT [facility] BUT DENIED IT DURING THIS EVAL. PT CLEARED FOR OUTPT PSYCH - Data Reviewed Data Reviewed: Lab, Old records - Continuity of Care Discussed pt. case with middleware consultant/specialty: Psychiatry Medical Decision Making Medical Decision Making: PT REQUESTING ADMISSION EITHER FOR PSYCH OR FOR COLD SX. Disposition Counseled Patient/Family Regarding: Studies Performed, Diagnosis, Need For Followup - Disposition Referrals: [facility] [Provider Group] Disposition: HOME/ ROUTINE Disposition Time: 15:14 Condition: GOOD Instructions: Cold Symptoms (ED), Bipolar Disorder (ED) Forms: [employer] (Yoruba) - Clinical Impression Clinical Impression: Upper respiratory disease, Schizophrenia - Scribe Statement The provider has reviewed the documentation as recorded by the Scribe Ian Echeverria All medical record entries made by the Brianibe were at my direction and personally dictated by me. I have reviewed the chart and agree that the record accurately reflects my personal performance of the history, physical exam, medical decision making, and the department course for this patient. I have also personally directed, reviewed, and agree with the discharge instructions and disposition.
--- NOTE | 2017-06-01 15:53 | RAD ---
HISTORY: COLD SX COMPARISON: No prior. TECHNIQUE: Chest PA and lateral FINDINGS: LUNGS: No active pulmonary disease. PLEURA: No significant pleural effusion identified. No pneumothorax apparent. CARDIOVASCULAR: Normal. OSSEOUS STRUCTURES: No significant abnormalities. VISUALIZED UPPER ABDOMEN: Normal. OTHER FINDINGS: None. IMPRESSION: No active disease.
== END 2017-06-01 15:35 | disposition home or self-care (01) ==
LOC: C.ER 13:24
DX: J39.9 Disease of upper respiratory tract, unspecified (principal); F20.9 Schizophrenia, unspecified; E11.9 Type 2 diabetes mellitus without complications; E78.00 Pure hypercholesterolemia, unspecified; J45.909 Unspecified asthma, uncomplicated; I10 Essential (primary) hypertension; Z87.891 Personal history of nicotine dependence

== ENCOUNTER 2017-06-26 20:30 | Inpatient (IN) | payer MEDICAID, OTHER ==
[2017-06-26 20:30] VITALS: BMI 34.8
[2017-06-26] MEDS ORDERED: Sodium Chloride 0.9% 1,000 ML IV ONE (21:27)
--- NOTE | 2017-06-26 21:34 | C.PDOC ---
History Of Present Illness <Randolph Manzano - Last Filed: 06/26/17 22:34> <Rick Wylie R - Last Filed: 06/27/17 06:35> <Sally Steele A - Last Filed: 06/27/17 09:31> 27 year old male with a Hx of schizophrenia, depression, and suicide attempt presents to the ER after a suicide attempt. Patient states he took "all of his pain medication" which include: depakote, zoloft, clonopin, ativan, and ecstacy. Denies physical complaints at this time. (Randolph Manzano) History Per: Patient History/Exam Limitations: no limitations Onset/Duration Of Symptoms: Hrs Current Symptoms Are (Timing): Still Present Suicide/Self Injury Attempted (Context): Ingestion Modifying Factor(s): Other (Psych medications) Associated Symptoms: denies: Depression, Suicidal Thoughts, Suicidal Plan Involuntary Hold By: None Recent travel outside of the [place]: No <Randolph Manzano - Last Filed: 06/26/17 22:34> <Rick Wylie - Last Filed: 06/27/17 06:35> <Sally Steele A - Last Filed: 06/27/17 09:31> Time Seen by Provider: 06/26/17 20:58 Chief Complaint (Nursing): Psychiatric Evaluation Past Medical History Reviewed: Historical Data, Nursing Documentation, Vital Signs - Medical History PMH: Anxiety, Asthma, Bipolar Disorder, Depression, Fractures (hx. right wrist) , HTN (denies medication), Hypercholesterolemia, Migraine, Schizophrenia, Sleep Apnea Surgical History: No Surg Hx Family History: States: Unknown Family Hx - Social History Hx Tobacco Use: Yes Hx Alcohol Use: Yes Hx Substance Use: Yes (ecstasy) - Immunization History Hx Tetanus Toxoid Vaccination: No Hx Influenza Vaccination: No Hx Pneumococcal Vaccination: No <Randolph Manzano - Last Filed: 06/26/17 22:34> <Rick Wylie - Last Filed: 06/27/17 06:35> <Sally Steele A - Last Filed: 06/27/17 09:31> Vital Signs: Last Vital Signs Temp 98.4 F 06/27/17 08:19 Pulse 100 H 06/27/17 08:19 Resp 18 06/27/17 08:19 BP 110/86 06/27/17 08:19 Pulse Ox 99 06/27/17 08:19 - [facility] Procedures EXTRACTION OF LEFT FOOT SKIN, EXTERNAL APPROACH (11/11/16) EXTRACTION OF RIGHT FOOT SKIN, EXTERNAL APPROACH (11/11/16) GROUP PSYCHOTHERAPY (03/26/17) INDIV PSYCHOTHERAPY FOR SUBSTANCE ABUSE TREATMENT, SUPPORT (03/26/17) INDIV PSYCHOTHERAPY FOR SUBSTANCE ABUSE, PSYCHOEDUCATION (03/26/17) INDIVIDUAL PSYCHOTHERAPY, BEHAVIORAL (11/11/16) INDIVIDUAL PSYCHOTHERAPY, COGNITIVE-BEHAVIORAL (04/13/17) INDIVIDUAL PSYCHOTHERAPY, SUPPORTIVE (04/13/17) MEDICATION MANAGEMENT (05/07/16) Review Of Systems Constitutional: Negative for: Fever, Chills Gastrointestinal: Negative for: Nausea, Vomiting, Diarrhea <Randolph Manzano - Last Filed: 06/26/17 22:34> Physical Exam - Physical Exam Appears: Non-toxic, No Acute Distress Skin: Normal Color, Warm, Dry Head: Atraumatic, Normacephalic Eye(s): bilateral: Normal Inspection (Dilated pupils), EOMI Oral Mucosa: Moist Neck: Normal, Supple Chest: Symmetrical Cardiovascular: Rhythm Regular Respiratory: Normal Breath Sounds, No Rales, No Rhonchi, No Wheezing Gastrointestinal/Abdominal: Soft, No Tenderness Extremity: Normal ROM (x4) Neurological/Psych: Oriented x3, Normal Speech <Randolph Manzano - Last Filed: 06/26/17 22:34> ED Course And Treatment - Laboratory Results Result Diagrams: 06/26/17 21:33 06/26/17 21:33 ECG: Interpreted By Me, Viewed By Me ECG Rhythm: Sinus Bradycardia Interpretation Of ECG: No ST/T changes, normal intervals Rate From EC O2 Sat by Pulse Oximetry: 98 (Room air) Pulse Ox Interpretation: Normal <Randolph Manzano - Last Filed: 06/26/17 22:34> - Laboratory Results Result Diagrams: 06/26/17 21:33 06/26/17 21:33 Progress Note: Discussed with poison control who advise to repeat depakote levels in 4 hours. 05:10: Updated blood work shows depakote levels are treading down, patient is medically cleared and pending crisis evaluation. <Rick Wylie - Last Filed: 06/27/17 06:35> - Laboratory Results Result Diagrams: 06/26/17 21:33 06/27/17 06:49 <CedricSally A - Last Filed: 06/27/17 09:31> Medical Decision Making <Randolph Manzano - Last Filed: 06/26/17 22:34> <Cora Wylieel R - Last Filed: 06/27/17 06:35> <CedricSally A - Last Filed: 06/27/17 09:31> Medical Decision Making: overdose, discussed with [place] poison control [place], requests repeat ekg in 2 hours , repeat valproic at 4 hours EKG, blood work, and urinalysis ordered. IV fluids administered. (Randolph Manzano) Disposition <Randolph Manzano - Last Filed: 06/26/17 22:34> - Disposition Disposition Time: 07:00 <Rick Wylie R - Last Filed: 06/27/17 06:35> <CedricSally A - Last Filed: 06/27/17 09:31> - Disposition Condition: STABLE Forms: [employer] (Albanian) - Clinical Impression Clinical Impression: Suicidal intent - Scribe Statement The provider has reviewed the documentation as recorded by the Scribe <Randolph Manzano - Last Filed: 06/26/17 22:34> <Cora Wylieel R - Last Filed: 06/27/17 06:35> <CedricSally A - Last Filed: 06/27/17 09:31> - Scribe Statement Anthony Lehman All medical record entries made by the Scribe were at my direction and personally dictated by me. I have reviewed the chart and agree that the record accurately reflects my personal performance of the history, physical exam, medical decision making, and the department course for this patient. I have also personally directed, reviewed, and agree with the discharge instructions and disposition. (Randolph Manzano) Addendum <Randolph Manzano - Last Filed: 06/26/17 22:34> <Slaly Steele A - Last Filed: 06/27/17 09:31> Addendum: 06/27/17 09:30 Patient resting comfortably, in no distress. Accepted by Dr. Myers for psychiatric admission - schizoaffective disorder. (Sally Steele)
[2017-06-26] MEDS ORDERED: Sodium Chloride 0.9% 1,000 ML ONE (21:37)
[2017-06-26 21:39] LABS: BASO # 0.1 K/uL (0.0-0.2); BASO % 0.9 % (0.0-2.0); EOS # 0.1 K/uL (0.0-0.7); EOS % 1.8 % (0.0-4.0); HEMATOCRIT 37.7 % (35.0-51.0); LYMPH # 2.6 K/uL (1.0-4.3); LYMPH % 34.7 % (20.0-40.0); MEAN CELL VOLUME 82.9 fL (80.0-94.0); MEAN CORPUSCULAR HEMOGLOBIN 27.3 pg (27.0-31.0); MEAN CORPUSCULAR HGB CONC 32.9 g/dL (33.0-37.0); MEAN PLATELET VOLUME 9.7 fL (7.2-11.7); MONO # 0.7 K/uL (0.0-0.8); MONO % 9.7 % (0.0-10.0); RED CELL DISTRIBUTION WIDTH 15.5 % (11.5-14.5); WHITE BLOOD COUNT 7.4 K/uL (4.8-10.8)
[2017-06-26 21:55] LABS: ALB/GLOB RATIO 1.4 (1.0-2.1); ALCOHOL SERUM < 10 mg/dl (0-10); ALKALINE PHOSPHATASE 53 U/L (38-126); ALT/SGPT 41 U/L (21-72); AST/SGOT 31 U/L (17-59); BILIRUBIN,TOTAL 1.3 mg/dL (0.2-1.3); BLOOD UREA NITROGEN 10 mg/dL (9-20); CALCIUM 8.1 mg/dl (8.6-10.4); CARBON DIOXIDE 22 mmol/L (22-30); CHLORIDE 99 mmol/L (98-107); GFR AFRICAN-AMERICAN > 60; GLUCOSE,RANDOM 88 mg/dL (75-110); POTASSIUM 3.5 mmol/L (3.6-5.2); SODIUM 129 mmol/L (132-148); TOTAL PROTEIN 6.3 g/dL (6.3-8.3)
[2017-06-26 22:01] LABS: VALPROIC ACID 34.4 ug/mL (50.0-100.0)
[2017-06-27 01:45] LABS: URINE BILIRUBIN NEGATIVE (NEGATIVE); URINE BLOOD NEGATIVE (NEGATIVE); URINE COLOR Yellow (YELLOW); URINE GLUCOSE (UA) NORMAL (Normal); URINE KETONE NEGATIVE (NEGATIVE); URINE LEUKOCYTE ESTERASE NEG Leu/uL (Negative); URINE PROTEIN NEGATIVE (NEGATIVE); URINE UROBILINOGEN NORMAL mg/dL (0.2-1.0); WBC URINE 1 /hpf (0-5)
[2017-06-27 07:57] LABS: BLOOD UREA NITROGEN 7 mg/dL (9-20); CALCIUM 7.5 mg/dl (8.6-10.4); CARBON DIOXIDE 23 mmol/L (22-30); CHLORIDE 104 mmol/L (98-107); GFR AFRICAN-AMERICAN > 60; GLUCOSE,RANDOM 79 mg/dL (75-110); POTASSIUM 3.8 mmol/L (3.6-5.2); SODIUM 133 mmol/L (132-148)
--- NOTE | 2017-06-27 10:10 | PCM.BM ---
<Colleen Power - Last Filed: 06/27/17 10:09> Treatment Plan Problems - Problems identified on initial assessmt Auditory Hallucinations Date Initiated: 06/27/17 Time Initiated: 10:10 Assessment reference: NA Status: Active Treatment assets and liabiliti Patient Assests: cooperative, ADL independent, physically healthy, negotiates basic needs, cognitively intact - Milieu Protocol Maintain good personal hygiene: daily Encourage regular showers, daily Remind patient to perform daily oral care Conduct patient checks and document Observation sheet: Q15 minutes Maintain personal safety: every shift Educate patient to report safety concerns to staff, every shift Monitor environment for contraband/sharps Medication safety: Monitor for expected outcome, potential side effects: every shift, Assess barriers to learning: every shift, Assess readiness for medication education: every shift <Scot Zelaya - Last Filed: 06/27/17 12:41> - Diagnosis (1) Schizoaffective disorder Status: Acute Interventions: 06/27/17 12:40 * Assess/adjust medications daily and /or as needed * See patient on an individual basis 7x/week to assess symptoms of depression * Monitor for side effects & effectiveness of medications * * Assess/adjust medications daily and /or as needed * See patient on an individual basis 7x/week to assess level of manic behaviors and stability * Discuss risks, benefits, side effects and alternatives of medications *
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
--- NOTE | 2017-06-29 00:31 | PCM.PYCHPN ---
Psychiatric Progress Note - Psychiatric Progress Note Patient seen today, length of contact: 15 min Patient Chief Complaint: I am still feeling suicidal.' Problems Identified/Issues Discussed: Patient seen and evaluated, chart reviewed and discussed with the nurse. Patient remained isolated, confined and withdrawn. Patient still reports depressed mood and feelings of hopelessness and helplessness. He reports AH telling him to kill himself. He is taking medication and denies any side effects. He needs more time for stabilization. Supportive therapy and psychoeducation were given. Medication Change: No Medical Record Reviewed: Yes Mental Status Examination - Cognitive Function Orientation: Person, Place, Situation, Time Memory: Intact Attention: WNL Concentration: Poor Association: Loose Fund of Knowledge: Poor - Mood Mood: Depressed, Anxious - Affect Affect: Blunted - Speech Speech: Soft - Formal Thought Process Formal Thought Process: Hallucinations, Paranoia - Suicidal Ideation Suicidal Ideation: Yes - Homicidal Ideation Homicidal Ideation: No Goal/Treatment Plan - Goal/Treatment Plan Need for Continued Stay: Severe depression anxiety, Severe functional impairment Progress Toward Problem(s) and Goals/Treatment Plan: Schizoaffective d/o - depressed r/o malingering Antisocial Pers. d/o Borderline Pers. d/o Amphetamine use d/o - severe Abilify 5mg Trazodone 100 mg Consider Abilify Trtena as he is non-complaint Attend groups and activities Individual therapy daily Psychoeducation and support daily Encourage compliance with meds and after care Refer to outpatient program at [facility] - the only place he has been accepted so far. Teach healthy lifestyle methods, i.e. diet, exercise, meditation - Smoking Cessation Smoking Cessation Initiated: No
--- NOTE | 2017-06-29 16:52 | CARD ---
APPROVED REPORT EKG Measurement Heart [id number] <Conclusion> Sinus bradycardia Otherwise normal ECG
--- NOTE | 2017-06-30 05:36 | PCM.PYCHPN ---
Psychiatric Progress Note - Psychiatric Progress Note Patient seen today, length of contact: 15 min Patient Chief Complaint: "I am depressed" Problems Identified/Issues Discussed: The pt is seen, chart reviewed, case discussed with staff. Support given, CBT and PR used briefly No new symptoms reported, improving slowly and needs more time No SEs from medications, risks discussed. After care discussed - again, not sure what he wants As per staff, he started to over-socialize a female vulnerable (schizophrenic) patient. He is again warned against breaking unit rules and personal boundaries. Medication Change: Yes (increase abilify) Medical Record Reviewed: Yes Mental Status Examination - Cognitive Function Orientation: Person, Place, Situation, Time Memory: Intact Attention: WNL Concentration: Poor Association: Loose Fund of Knowledge: Poor - Mood Mood: Depressed, Anxious - Affect Affect: Blunted - Speech Speech: Soft - Formal Thought Process Formal Thought Process: Paranoia - Suicidal Ideation Suicidal Ideation: No - Homicidal Ideation Homicidal Ideation: No Goal/Treatment Plan - Goal/Treatment Plan Need for Continued Stay: Severe depression anxiety, Severe functional impairment Progress Toward Problem(s) and Goals/Treatment Plan: Abilify for mood stabilization Consider Alexis Mendez as he is non-compliant Attend groups and activities Individual therapy daily Psychoeducation and support daily Encourage compliance with meds and after care Refer to outpatient program at [facility] he has been accepted so far. Teach healthy lifestyle methods, i.e. diet, exercise, meditation
--- NOTE | 2017-06-30 12:40 | PCM.PYCHPN ---
Psychiatric Progress Note - Psychiatric Progress Note Patient seen today, length of contact: 15 min Patient Chief Complaint: I am still feeling suicidal.' Problems Identified/Issues Discussed: Patient seen and evaluated, chart reviewed and discussed with the nurse. Patient remained isolated, confined and withdrawn. Patient still reports depressed mood and feelings of hopelessness and helplessness. He reports AH telling him to kill himself. He is taking medication and denies any side effects. He needs more time for stabilization. Supportive therapy and psychoeducation were given. Medication Change: Yes (increase abilify) Medical Record Reviewed: Yes Mental Status Examination - Cognitive Function Orientation: Person, Place, Situation, Time Memory: Intact Attention: WNL Concentration: Poor Association: Loose Fund of Knowledge: Poor - Mood Mood: Depressed, Anxious - Affect Affect: Blunted - Speech Speech: Soft - Formal Thought Process Formal Thought Process: Paranoia - Suicidal Ideation Suicidal Ideation: No - Homicidal Ideation Homicidal Ideation: No Goal/Treatment Plan - Goal/Treatment Plan Need for Continued Stay: Severe depression anxiety, Severe functional impairment Progress Toward Problem(s) and Goals/Treatment Plan: Schizoaffective d/o - depressed r/o malingering Antisocial Pers. d/o Borderline Pers. d/o Amphetamine use d/o - severe Abilify 5mg Trazodone 100 mg Consider Alexis Mendez as he is non-complaint Attend groups and activities Individual therapy daily Psychoeducation and support daily Encourage compliance with meds and after care Refer to outpatient program at [facility] - the only place he has been accepted so far. Teach healthy lifestyle methods, i.e. diet, exercise, meditation
--- NOTE | 2017-06-30 15:57 | CARD ---
APPROVED REPORT EKG Measurement Heart [id number] <Conclusion> Poor data quality, interpretation may be adversely affected Sinus bradycardia Otherwise normal ECG
--- NOTE | 2017-07-01 10:17 | PCM.PYCHPN ---
Psychiatric Progress Note - Psychiatric Progress Note Patient seen today, length of contact: 15 min Patient Chief Complaint: I am still feeling suicidal.' Problems Identified/Issues Discussed: Patient seen and evaluated, chart reviewed and discussed with the nurse. Patient reports improvement in his mood and started getting social. As per the staff, pt is malingering to prolong his stay. He is anti social and he is stalking female patients in the unit. Patient still reports depressed mood and feelings of hopelessness and helplessness. He is taking medication and denies any side effects. He needs more time for stabilization. Supportive therapy and psychoeducation were given. Medication Change: Yes (start risperdal, depakote) Medical Record Reviewed: Yes Mental Status Examination - Cognitive Function Orientation: Person, Place, Situation, Time Memory: Intact Attention: WNL Concentration: Poor Association: WNL Fund of Knowledge: Poor - Mood Mood: Depressed, Anxious - Affect Affect: Blunted - Speech Speech: Soft - Formal Thought Process Formal Thought Process: No Impairment - Suicidal Ideation Suicidal Ideation: No - Homicidal Ideation Homicidal Ideation: No Goal/Treatment Plan - Goal/Treatment Plan Need for Continued Stay: Severe depression anxiety, Severe functional impairment Progress Toward Problem(s) and Goals/Treatment Plan: Schizoaffective d/o - depressed r/o malingering Antisocial Pers. d/o Borderline Pers. d/o Amphetamine use d/o - severe Abilify 10mg Haldol 10 mg PO BID Trazodone 100 mg Consider Abilify Maintena as he is non-complaint Attend groups and activities Individual therapy daily Psychoeducation and support daily Encourage compliance with meds and after care Refer to outpatient program at [facility] - the only place he has been accepted so far. Teach healthy lifestyle methods, i.e. diet, exercise, meditation - Smoking Cessation Smoking Cessation Initiated: No
[2017-07-01] MEDS: Divalproex 250 mg DR Tab PO SCH (17:17)
[2017-07-02 07:44] VITALS: O2SAT 97
[2017-07-02] MEDS: Divalproex 250 mg DR Tab PO SCH ×2 (09:50→17:57)
--- NOTE | 2017-07-02 10:33 | PCM.PYCHPN ---
Psychiatric Progress Note - Psychiatric Progress Note Patient seen today, length of contact: 15 min Patient Chief Complaint: I am still feeling suicidal.' Problems Identified/Issues Discussed: Patient seen and evaluated, chart reviewed and discussed with the nurse. Patient remained isolated, confined and withdrawn. Patient still reports depressed mood and feelings of hopelessness and helplessness. As per the staff he is doing better. He is taking medication and denies any side effects. He needs more time for stabilization. Supportive therapy and psychoeducation were given. Medication Change: No Medical Record Reviewed: Yes Mental Status Examination - Cognitive Function Orientation: Person, Place, Situation, Time Memory: Intact Attention: WNL Concentration: WNL Association: WNL Fund of Knowledge: Poor - Mood Mood: Depressed, Anxious - Affect Affect: Blunted - Speech Speech: Soft - Formal Thought Process Formal Thought Process: No Impairment - Suicidal Ideation Suicidal Ideation: No - Homicidal Ideation Homicidal Ideation: No Goal/Treatment Plan - Goal/Treatment Plan Need for Continued Stay: Severe depression anxiety, Severe functional impairment Progress Toward Problem(s) and Goals/Treatment Plan: Schizoaffective d/o - depressed r/o malingering Antisocial Pers. d/o Borderline Pers. d/o Amphetamine use d/o - severe Haldol 5 mg PO BID Depakote 250 mg PO BID Trazodone 100 mg Attend groups and activities Individual therapy daily Psychoeducation and support daily Encourage compliance with meds and after care Teach healthy lifestyle methods, i.e. diet, exercise, meditation - Smoking Cessation Smoking Cessation Initiated: No
[2017-07-03 07:13] VITALS: BP 102/61; PULSE 68; RESP 18; TEMP 98.1
[2017-07-03] MEDS: Divalproex 250 mg DR Tab PO SCH (09:49)
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
== END 2017-07-03 13:00 | disposition home or self-care (01) | DRG 885 ==
LOC: C.ER 20:30 → C.9E 06-27 09:29 → C.5E 06-27 09:37
PROVIDERS: ADMIT Psychiatry & Neurology Psychiatry; ATTEND Psychiatry & Neurology Psychiatry
PROC: GZ58ZZZ Individual Psychotherapy, Cognitive-Behavioral (ICD-10-PCS; principal; 2017-06-27)
PROC: GZ56ZZZ Individual Psychotherapy, Supportive (ICD-10-PCS; 2017-06-27)
PROC: GZHZZZZ Group Psychotherapy (ICD-10-PCS; 2017-06-27)
DX: F25.1 Schizoaffective disorder, depressive type (principal); R45.851 Suicidal ideations; E66.3 Overweight; E78.00 Pure hypercholesterolemia, unspecified; F15.90 Other stimulant use, unspecified, uncomplicated; G47.30 Sleep apnea, unspecified; F60.2 Antisocial personality disorder; Z76.5 Malingerer [conscious simulation]; F31.9 Bipolar disorder, unspecified; F41.9 Anxiety disorder, unspecified; T42.6X2A Poisoning by other antiepileptic and sedative-hypnotic drugs, intentional self-harm, initial encounter; G43.909 Migraine, unspecified, not intractable, without status migrainosus; I10 Essential (primary) hypertension; J45.909 Unspecified asthma, uncomplicated; Z79.899 Other long term (current) drug therapy; Z87.891 Personal history of nicotine dependence

== ENCOUNTER 2017-07-04 10:53 | Emergency (ER) | payer SELFPAY ==
[2017-07-04 10:54] VITALS: BMI 34.8
[2017-07-04 11:23] LABS: BASO % 0.8 % (0.0-2.0); EOS % 0.9 % (0.0-4.0); HEMATOCRIT 42.1 % (35.0-51.0); LYMPH # 1.2 K/uL (1.0-4.3); LYMPH % 21.8 % (20.0-40.0); MEAN CELL VOLUME 83.5 fL (80.0-94.0); MEAN CORPUSCULAR HEMOGLOBIN 27.1 pg (27.0-31.0); MEAN CORPUSCULAR HGB CONC 32.5 g/dL (33.0-37.0); MEAN PLATELET VOLUME 9.9 fL (7.2-11.7); MONO # 0.3 K/uL (0.0-0.8); MONO % 6.5 % (0.0-10.0); RED CELL DISTRIBUTION WIDTH 15.3 % (11.5-14.5); WHITE BLOOD COUNT 5.3 K/uL (4.8-10.8)
[2017-07-04 11:39] LABS: RBC URINE 1 /hpf (0-3); URINE BILIRUBIN NEGATIVE (NEGATIVE); URINE BLOOD NEGATIVE (NEGATIVE); URINE COLOR Yellow (YELLOW); URINE GLUCOSE (UA) NORMAL (Normal); URINE KETONE NEGATIVE (NEGATIVE); URINE LEUKOCYTE ESTERASE NEG Leu/uL (Negative); URINE PROTEIN NEGATIVE (NEGATIVE); URINE UROBILINOGEN NORMAL mg/dL (0.2-1.0); WBC URINE < 1 /hpf (0-5)
[2017-07-04 11:44] LABS: ALB/GLOB RATIO 1.1 (1.0-2.1); ALCOHOL SERUM < 10 mg/dl (0-10); ALKALINE PHOSPHATASE 46 U/L (38-126); ALT/SGPT 57 U/L (21-72); AST/SGOT 35 U/L (17-59); BILIRUBIN,TOTAL 0.4 mg/dL (0.2-1.3); BLOOD UREA NITROGEN 11 mg/dL (9-20); CALCIUM 8.8 mg/dl (8.6-10.4); CARBON DIOXIDE 27 mmol/L (22-30); CHLORIDE 101 mmol/L (98-107); GFR AFRICAN-AMERICAN > 60; GLUCOSE,RANDOM 64 mg/dL (75-110); POTASSIUM 4.4 mmol/L (3.6-5.2); SODIUM 134 mmol/L (132-148); TOTAL PROTEIN 8.3 g/dL (6.3-8.3)
[2017-07-04 11:51] VITALS: BP 139/71; PULSE 74; RESP 16; TEMP 98.6; O2SAT 97
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
== END 2017-07-04 12:52 | disposition home or self-care (01) ==
LOC: C.ER 10:53
DX: F25.9 Schizoaffective disorder, unspecified (principal)
CPT/HCPCS: 80053; 81001; 85025; 99283; G0480